=== PATIENT | female | born 1935 | race Caucasian/White ===

== ENCOUNTER 2018-12-18 18:31 | Inpatient (IN) | payer OTHER ==
--- NOTE | 2018-12-18 18:52 | EDPHY ---
H & P Time Seen by Provider: 12/18/18 18:36 HPI/ROS: CHIEF COMPLAINT: Altered mental status, failure to thrive HISTORY OF PRESENT ILLNESS: Patient is an 83-year-old female who presents emergency department via EMS. Per report the patient called her family and asked them to come check on her. Per report, at some point during the last week the patient fell. She is not sure when or how. Patient also reports that sometime during the last week her dog . When I asked the patient if she is aware of what is going on she tells me that she is feeling sad. Patient has no headache. No neck or back pain. No chest pain or shortness of breath. No abdominal pain. She denies nausea vomiting. No pelvic pain. Per the patient's family, her house is usually disheveled. However, they feel the patient is slightly more confused than normal. REVIEW OF SYSTEMS: 10 systems were reveiwed and are negative with the exception of the elements mentioned in the history of present illness. Past Medical/Surgical History: Past medical history: Includes valve replacement Past surgical history: Valve replacement Social history: Patient lives alone Physical Exam: Vitals noted GENERAL: No acute distress, alert. HEAD: No evidence of trauma. Matted hair with dry blood posteriorly. No tenderness to palpation EYES: PERRLA, EOMI, normal to inspection. ENT: Airway intact, no dental or oral injury, no malocclusion, normal external examination. NECK: The trachea is midline. There is no crepitus. The C-spine is nontender. RESPIRATORY: [Clear to auscultation bilaterally, no rales, rhonchi or wheezing. Chest wall: Normal to appearance. No crepitance or deformity. CVS: Regular rate and rhythm, no rubs, murmurs, or gallops. ABDOMEN: Soft, nontender, nondistended, no bruising or abrasions. Pelvis: Stable. No tenderness palpation. Patient has significant bruising over her left posterior pelvis. Mild tenderness palpation GENITAL/RECTAL: Normal external exam. BACK: Bruising of various ages. Normal to inspection, no spinal tenderness, no spinal step off, no notable bruising or abrasions. SKIN: Normal color, warm, dry. No pallor or diaphoresis. EXTREMITIES: Patient moves all her extremities freely. She is neurovascular intact distally in all extremities. The patient does have numerous bruises of different ages all over her extremities. NEURO/PSYCH: Alert and oriented x 2, GCS 14, normal mood and affect, normal motor sensory exam. Constitutional: Initial Vital Signs Temperature (C) 37.1 C 12/18/18 18:51 Heart Rate 128 H 12/18/18 18:51 Respiratory Rate 18 12/18/18 18:51 Blood Pressure 99/71 L 12/18/18 18:51 O2 Sat (%) 94 12/18/18 18:51 O2 Delivery Mode Room Air Allergies/Adverse Reactions: Penicillins Allergy (Verified 12/18/18 18:58) Home Medications: Medication Instructions Recorded Unobtainable 12/18/18 Medical Decision Making ED Course/Re-evaluation: In the emergency department I discussed the case with the family. I also discussed case with the school photograph editor. I answered all her questions. An IV was placed. Laboratory studies and imaging was obtained. I took further history from the patient's family. Per report she has had a valve replaced. She was initially on blood thinners but they are not sure what blood thinner she currently takes. Due the patient's condition, confusion, scattered bruising, and report of blood thinners CT imaging was performed from her head to her pelvis. EKG was obtained. EKG: Sinus tachycardia 124. Prolonged QT. Flipped T-waves in III, V3-V6 Patient's white count is mildly elevated at 10. Hematocrit is normal. INR slightly elevated at 1.19. The patient's chemistry panel shows a slightly low potassium of 3.3. Troponin is negative. 1939: The family initially refuse CT imaging. They were concerned about the patient having [employer] insurance. They want to contact [place] by phone. I discussed that I felt the patient was not stable at this time. She had altered mental status with an elevated heart rate of 126. [place] informed the patient his family that she could have an emergency workup at [facility]. They agreed to CT imaging. Patient was given potassium chloride 60 mEq orally. Rechecked the patient. She had no complaints. She remained tachycardic. Clear breath sounds bilaterally. Abdomen was benign. CT of the head and C-spine: Please refer the dictated report. No acute disease noted. CT of the chest, abdomen and pelvis: Please refer the dictated report by Dr. Rizvi. The patient has posterior 3, 4, 5 rib fractures. CK was 963. I discussed case with MARIA E Mederos. Patient will be admitted to [facility] due to her ongoing tachycardia and stability. I discussed the case with Dr. Winter. The patient is aware that she will be admitted. I discussed the plan with the family. I answered all her questions. I discussed the case with Dr. Thomas from [facility]. He will evaluate the patient for her falls and fractures. Patient's admission order was changed from PCU to ICU due to her mental health hold. Differential Diagnosis: My differential includes but is not limited to subarachnoid hemorrhage, subdural hematoma, epidural hematoma, spinal injury, dysrhythmia, ACS, electrolyte abnormality, sugar abnormality, dehydration, fracture Critical Care Time: Patient required 35 min of critical care time. This was due the patient's presentation, consultation with [place], the hospitalist service, trauma service , discussions with the family, time spent at the bedside - Data Points Laboratory Results: Laboratory Results 12/18/18 18:45 12/18/18 18:45 12/18/18 12/18/18 12/18/18 20:30 19:17 18:45 WBC RBC Hgb Hct MCV MCH MCHC RDW Plt Count MPV Neut % (Auto) Lymph % (Auto) [place] % (Auto) Eos % (Auto) Baso % (Auto) Nucleat RBC Rel Count Absolute Neuts (auto) Absolute Lymphs (auto) Absolute Monos (auto) Absolute Eos (auto) Absolute Basos (auto) Absolute Nucleated RBC Immature Gran % Seg Neutrophils % Band Neutrophils % Lymphocytes % Monocytes % Eosinophils % Basophils % Metamyelocytes % Myelocytes % Promyelocytes % Blast Cells % Immature Gran # Absolute Seg Neuts Absolute Band Neuts Absolute Lymphocytes Absolute Monocytes Absolute Eosinophils Absolute Basophils Absolute Metamyelocyte Absolute Myelocytes Absolute Promyelocytes Absolute Plasma Cells Nucleated RBCs RBC/WBC/PLT Morphology Absolute Blast Cells Plasma Cells % Platelet Estimate PT 14.6 SEC SEC (12.0-15.0) INR 1.19 H (0.83-1.16) APTT 26.9 SEC SEC (23.0-38.0) Sodium Potassium Chloride Carbon Dioxide Anion Gap BUN Creatinine Estimated GFR Glucose Calcium Creatine Kinase CK-MB (CK-2) Fraction CK-MB (CK-2) % Creatine Kinase Interp POC Troponin I 0.04 ng/mL ng/mL (0.00-0.08) TSH Pending Salicylates Acetaminophen Ethyl Alcohol 12/18/18 12/18/18 12/18/18 18:45 18:45 18:31 WBC 10.38 10^3/uL H 10^3/uL (3.80-9.50) RBC 4.90 10^6/uL 10^6/uL (4.18-5.33) Hgb 16.0 g/dL g/dL (12.6-16.3) Hct 47.1 % H % (38.0-47.0) MCV 96.1 fL fL (81.5-99.8) MCH 32.7 pg pg (27.9-34.1) MCHC 34.0 g/dL g/dL (32.4-36.7) RDW 14.1 % % (11.5-15.2) Plt Count 159 10^3/uL 10^3/uL (150-400) MPV 10.2 fL fL (8.7-11.7) Neut % (Auto) Not Reported Lymph % (Auto) Not Reported Fallon % (Auto) Not Reported Eos % (Auto) Not Reported Baso % (Auto) Not Reported Nucleat RBC Rel Count Not Reported Absolute Neuts (auto) Not Reported Absolute Lymphs (auto) Not Reported Absolute Monos (auto) Not Reported Absolute Eos (auto) Not Reported Absolute Basos (auto) Not Reported Absolute Nucleated RBC Not Reported Immature Gran % Not Reported Seg Neutrophils % 86.0 % % Band Neutrophils % 0.0 % % Lymphocytes % 7.0 % % Monocytes % 6.0 % % Eosinophils % 1.0 % % Basophils % 0.0 % % Metamyelocytes % 0.0 % % Myelocytes % 0.0 % % Promyelocytes % 0.0 % % Blast Cells % 0.0 % % Immature Gran # Not Reported Absolute Seg Neuts 8.93 10^3/uL H 10^3/uL (1.70-6.50) Absolute Band Neuts 0.00 10^3/uL 10^3/uL (0.00-0.70) Absolute Lymphocytes 0.73 10^3/uL L 10^3/uL (1.00-3.00) Absolute Monocytes 0.62 10^3/uL 10^3/uL (0.30-0.80) Absolute Eosinophils 0.10 10^3/uL 10^3/uL (0.03-0.40) Absolute Basophils 0.00 10^3/uL L 10^3/uL (0.02-0.10) Absolute Metamyelocyte 0.00 10^3/mL 10^3/mL (0.00-0.00) Absolute Myelocytes 0.00 10^3/mL 10^3/mL (0.00-0.00) Absolute Promyelocytes 0.00 10^3/uL 10^3/uL (0.00-0.00) Absolute Plasma Cells 0.00 10^3/uL 10^3/uL (0.00-0.00) Nucleated RBCs 0 /100 WBC /100 WBC (0-0) RBC/WBC/PLT Morphology NORMAL (NORMAL) Absolute Blast Cells 0.00 10^3/uL 10^3/uL (0.00-0.00) Plasma Cells % 0.0 % % Platelet Estimate ADEQUATE (ADEQ) PT INR APTT Sodium 137 mEq/L mEq/L (135-145) Potassium 3.3 mEq/L L mEq/L (3.5-5.2) Chloride 101 mEq/L mEq/L (97-110) Carbon Dioxide 27 mEq/l mEq/l (22-31) Anion Gap 9 mEq/L mEq/L (6-14) BUN 50 mg/dL H mg/dL (7-23) Creatinine 0.8 mg/dL mg/dL (0.6-1.0) Estimated GFR > 60 Glucose 113 mg/dL H mg/dL (70-100) Calcium 9.4 mg/dL mg/dL (8.5-10.4) Creatine Kinase 963 IU/L H IU/L (0-156) CK-MB (CK-2) Fraction 9.35 ng/mL H ng/mL (0.00-4.55) CK-MB (CK-2) % 1.0 % % (0.0-4.0) Creatine Kinase Interp NEGATIVE (NEGATIVE) POC Troponin I TSH Salicylates < 1.0 mg/dL L mg/dL (2.0-20.0) Acetaminophen < 10 mcg/mL L mcg/mL (10-30) Ethyl Alcohol < 10 mg/dL mg/dL (0-10) Medications Given: Potassium Chloride (Klor-Con) 40 meq PO ONCE ONE Stop: 12/18/18 23:05 Last Admin: 12/18/18 23:10 Dose: 40 meq Discontinued Medications Sodium Chloride (Ns) 1,000 mls @ 0 mls/hr IV ONCE ONE PRN Reason: Wide Open Stop: 12/18/18 19:48 Last Admin: 12/18/18 20:17 Dose: 1,000 mls Sodium Chloride (Ns) 1,000 mls @ 0 mls/hr IV ONCE ONE PRN Reason: Wide Open Stop: 12/18/18 21:20 Last Admin: 12/18/18 21:25 Dose: 1,000 mls Potassium Chloride (Potassium Chloride Oral Liquid) 40 meq PO EDNOW ONE Stop: 12/18/18 22:29 Last Admin: 12/18/18 23:10 Dose: Not Given Point of Care Test Results: Chemistry 12/18/18 19:17 POC Troponin I 0.04 ng/mL ng/mL (0.00-0.08) Departure - Departure Disposition: [facility] Inpatient Acute Clinical Impression: Tachycardia, Hypokalemia Altered mental status Qualifiers: Altered mental status type: unspecified Qualified Code(s): R41.82 - Altered mental status, unspecified Rib fracture Qualifiers: Encounter type: initial encounter Rib fracture type: multiple ribs Fracture type: closed Laterality: left Qualified Code(s): S22.42XA - Multiple fractures of ribs, left side, initial encounter for closed fracture Condition: Fair
[2018-12-18 19:06] LABS: PLATELET COUNT 159 10^3/uL (150-400)
[2018-12-18] MEDS ORDERED: IOPAMIDOL (ISOVUE-300) 100 ML BTL ONE (19:12)
[2018-12-18 19:21] LABS: INR 1.19 (0.83-1.16); PROTIME(PATIENT) 14.6 SEC (12.0-15.0)
[2018-12-18] MEDS ORDERED: NS 1,000 ML IV ONE ×2 (19:47→21:19)
[2018-12-18 21:40] LABS: CREATINE KINASE 963 IU/L (0-156)
[2018-12-18] MEDS ORDERED: ONDANSETRON DISINTEGRATING 4 MG TAB PO PRN (22:23)
[2018-12-18] MEDS ORDERED: HYDROmorphONE/DILAUDID 1 MG/ML INJ IVP PRN (22:23)
[2018-12-18] MEDS ORDERED: ONDANSETRON 4 MG/2 ML VIAL IVP PRN (22:23)
[2018-12-18] MEDS ORDERED: POTASSIUM CL 20 MEQ/15 ML UDCUP PO ONE (22:28)
[2018-12-18] MEDS ORDERED: NS 1,000 ML IV SCH (22:30)
[2018-12-18] MEDS ORDERED: POTASSIUM CL 20 MEQ TAB ONE (22:56)
[2018-12-18] MEDS ORDERED: POTASSIUM CL 20 MEQ TAB PO ONE (23:04)
--- NOTE | 2018-12-18 23:07 | CPEKG ---
Test Reason : OPEN Blood Pressure : / mmHG Vent. Rate : 124 BPM Atrial Rate : 128 BPM P-R Int : 105 ms QRS Dur : 076 ms QT Int : 380 ms P-R-T Axes : 000 073 262 degrees QTc Int : 546 ms Sinus tachycardia Probable left atrial enlargement Abnormal T, consider ischemia, diffuse leads Prolonged QT interval Confirmed by Demetrio Ojeda ([id number]) on 12/18/2018 11:06:56 PM Referred By: DEMETRIO OJEDA Confirmed By:Demetrio Ojeda
[2018-12-19] MEDS ORDERED: HEPARIN 10,000 UNIT/10 ML MDV (1,000 UNIT/ML) IVP PRN (00:36)
[2018-12-19] MEDS ORDERED: HEPARIN 10,000 UNIT/10 ML MDV (1,000 UNIT/ML) IVP ONE (00:36)
--- NOTE | 2018-12-19 00:37 | GCON ---
[f rep st] CONSULTATION REASON FOR CONSULTATION: Multiple rib fractures. HISTORY: The patient is an 83-year-old female who lives alone. Reports her house is usually fairly disheveled but recently has been more so. Apparently she fell 2 or 3 days ago. Was on the floor and could not get to a phone. She has 2 dogs and could not let them out and care for them. One of the dogs has . She has no memory of the event. She keeps thinking she was attacked by an intruder, but there is no evidence of that. According to the family she is slightly more confused than normal. She has multiple contusions. Her CK is 963. She has bruises over her left shoulder, her left back, right thigh, both knees, lower legs as well as other sites. She was found to have fractures of left T1 transverse process and left ribs 3, 4, and 5 posteriorly and 3, 4, 5, and 6 anteriorly but no evidence of a pneumothorax. PAST SOCIAL HISTORY: She smoked approximately 1/2 pack a day for 10 years. She drinks a large glass of vodka daily. MEDICATIONS: Include Pradaxa 150 mg; metoprolol 50 mg twice a day; levothyroxine which she is supposed to take 75 mcg 1.5 tablets daily, but she only takes 1 tablet daily; she takes citalopram 40 mg for depression daily and takes lisinopril 10 mg daily. PAST SURGICAL HISTORY: Includes a right leg embolectomy. At that time, they discovered her to have severe mitral regurgitation and she underwent a valve replacement. She has been on blood thinners (most recently Pradaxa) since that time. The reason she is on lisinopril and metoprolol is to decrease her afterload according to the daughter. She also has had a left humeral head fracture repair. Note is made she did have rheumatic fever as a child, but has not had TB, hepatitis, or transfusions. She has been hypothyroid for 35 years. She does have stress incontinence and occasional issues with uterine prolapse. PHYSICAL EXAMINATION: GENERAL: She is quite hirsute. She is pleasant and pleasantly confused. Interview was carried out to the aid of her daughter. HEENT: Her skull appears to be normocephalic and atraumatic. Her neck is nontender. CT of the head did show atrophy. CT of the neck did not show any acute changes. EXTREMITIES: Right and left upper extremities are unremarkable. CARDIAC: Rapid heart rate of 130. Her saturations are good. Note is made the CT does show a left atrial thrombus. ABDOMEN: Generous, nontender. CT does not show any abnormalities. IMPRESSION: Patient who is aging and somewhat confused who currently lives alone. She appears to have fallen and wilbur on the floor for several days prompting the rhabdomyolysis. Her ribs are not displaced nor is there a pneumothorax or hemothorax. Pulmonary toilet measures will be recommended and ordered. /[id number]/MODL MTDD
--- NOTE | 2018-12-19 01:13 | PDGENHP ---
History and Physical - Chief Complaint Confusion, fall - History of Present Illness Source-patient is awake alert but with poor memory of events over the last several days. Patient's daughter is at bedside and supplements details. EMR was reviewed and case discussed with ED provider and trauma surgeon. HPI - this is a pleasant 83-year-old female with a past medical history significant for depression, HTN, Daily alcohol consult Hem a hypothyroidism, mitral valve replacement chronically on anticoagulation who presents emergency department via EMS after patient called her family reporting that she was unable to get up. Patient does not recall events over last several days. Suspect that patient had a fall at home and was unable to get up for a few days. Patient is quite a bit more confused from her baseline per the daughter which is new. Patient lives independently at home which was reported to be a bit cluttered. She was placed on a M1 hold the due to increasing confusion and agitation on-site. Patient is concerned that somebody broke into her home although there is no reported evidence of a break can or items being taken. At time of my interview in the ED, patient denies any chest pain, palpitations, shortness of breath, fever, chills. She does endorse a runny nose. No nausea, vomiting, diarrhea or abdominal pain. Patient denies any dysuria. She reports she feels quite dehydrated and she has not yet had to void. She does complain of some right great toe pain but otherwise denies any other pain. History Information - Allergies/Home Medication List Allergies/Adverse Reactions: Penicillins Allergy (Verified 12/18/18 18:58) Home Medications: Unobtainable 12/18/18 [Last Taken Unknown] I have personally reviewed and updated: family history, medical history, social history, surgical history - Past Medical History Additional medical history: HTN, depression, chronic anticoagulation for history of prosthetic mitral valve, history of rheumatic fever, DVT in the right lower extremity, hypothyroidism. - Surgical History Additional surgical history: Prosthetic mitral valve replacement, right lower extremity thrombectomy, right shoulder repair with revision. - Family History Additional family history: Negative for DVT. - Social History Smoking Status: Former smoker Tobacco Use: Cigarettes (Ten year history.) Alcohol Use: Heavy (Patient drinks several oz of vodka on a daily basis.) Drug Use: None Additional social history: Patient lives alone in her own home. She has family who live locally and are supportive. Cor status-full. Review of Systems Review of Systems: Ten systems reviewed negative except as noted above. ROS: 10pt was reviewed & negative except for what was stated in HPI & below Physical Exam Physical Exam: Selected Entries 12/18/18 18:51 Blood Pressure Automatic Method Heart Rate 128 H Respiratory 18 Rate O2 Sat (%) 94 Temperature (C) 37.1 C Blood Pressure 99/71 L Mean Arterial 80 Pressure (MAP) O2 Delivery Room Air Mode Temperature Oral Source Temp Pulse Resp BP Pulse Ox 37.2 C 130 H 20 112/79 92 12/19/18 01:04 12/19/18 01:04 12/19/18 01:04 12/19/18 01:04 12/19/18 01:04 Constitutional: no apparent distress, appears nourished, not in pain, chronically ill appearing, other (NAD. Pleasant elderly frail-appearing female is lying comfortably in bed. Daughter at bedside.) Eyes: PERRL (Slightly decreased reactivity light bilaterally but symmetric.), anicteric sclera, EOMI, No scleral injection Ears, Nose, Mouth, Throat: poor dentition (Dentition in fair condition.), dry mucous membranes, other (No nasal discharge.) Cardiovascular: regular rate and rhythym, JVD, pulses symmetric bilaterally, tachycardia, edema (Trace bilateral lower extremity edema) Peripheral Pulses: 1+: dorsalis-pedis (R), dorsalis-pedis (L) Respiratory: no respiratory distress, no rales or rhonchi, clear to auscultation , No inspiratory crackles, No respiratory distress Gastrointestinal: soft, non-tender abdomen, other (Hypoactive bowel sounds. Soft but full.), No distension Genitourinary: no bladder tenderness, No mason in urethra Skin: warm, normal color, other (Patient with contusions to her right hip and lower extremities.) Musculoskeletal: generalized weakness, other (Patient is not able to sit up independently. She does require a little bit of assistance rolling to her side. She is able to move all extremities while lying in bed. Strength overall 4 5 in upper lower extremities bilaterally.) Neurologic: sensation intact bilaterally, CN II-XII Intact, other (Patient overall with quite poor memory. She forgets items of discussion within several minutes during interview.), No AAOx3, No facial droop Psychiatric: interacting appropriately, thought process linear, encephalopathic , poor insight, poor judgement, poor memory, No anxious, No depressed, No suicidal ideation, No agitated Lab Data & Imaging Review 12/18/18 18:45 12/18/18 18:45 WBC 10.38 10^3/uL (3.80-9.50) H 12/18/18 18:45 RBC 4.90 10^6/uL (4.18-5.33) 12/18/18 18:45 Hgb 16.0 g/dL (12.6-16.3) 12/18/18 18:45 Hct 47.1 % (38.0-47.0) H 12/18/18 18:45 MCV 96.1 fL (81.5-99.8) 12/18/18 18:45 MCH 32.7 pg (27.9-34.1) 12/18/18 18:45 MCHC 34.0 g/dL (32.4-36.7) 12/18/18 18:45 RDW 14.1 % (11.5-15.2) 12/18/18 18:45 Plt Count 159 10^3/uL (150-400) 12/18/18 18:45 MPV 10.2 fL (8.7-11.7) 12/18/18 18:45 Neut % (Auto) Not Reported 12/18/18 18:45 Lymph % (Auto) Not Reported 12/18/18 18:45 King % (Auto) Not Reported 12/18/18 18:45 Eos % (Auto) Not Reported 12/18/18 18:45 Baso % (Auto) Not Reported 12/18/18 18:45 Nucleat RBC Rel Count Not Reported 12/18/18 18:45 Absolute Neuts (auto) Not Reported 12/18/18 18:45 Absolute Lymphs (auto) Not Reported 12/18/18 18:45 Absolute Monos (auto) Not Reported 12/18/18 18:45 Absolute Eos (auto) Not Reported 12/18/18 18:45 Absolute Basos (auto) Not Reported 12/18/18 18:45 Absolute Nucleated RBC Not Reported 12/18/18 18:45 Immature Gran % Not Reported 12/18/18 18:45 Seg Neutrophils % 86.0 % 12/18/18 18:45 Band Neutrophils % 0.0 % 12/18/18 18:45 Lymphocytes % 7.0 % 12/18/18 18:45 Monocytes % 6.0 % 12/18/18 18:45 Eosinophils % 1.0 % 12/18/18 18:45 Basophils % 0.0 % 12/18/18 18:45 Metamyelocytes % 0.0 % 12/18/18 18:45 Myelocytes % 0.0 % 12/18/18 18:45 Promyelocytes % 0.0 % 12/18/18 18:45 Blast Cells % 0.0 % 12/18/18 18:45 Immature Gran # Not Reported 12/18/18 18:45 Absolute Seg Neuts 8.93 10^3/uL (1.70-6.50) H 12/18/18 18:45 Absolute Band Neuts 0.00 10^3/uL (0.00-0.70) 12/18/18 18:45 Absolute Lymphocytes 0.73 10^3/uL (1.00-3.00) L 12/18/18 18:45 Absolute Monocytes 0.62 10^3/uL (0.30-0.80) 12/18/18 18:45 Absolute Eosinophils 0.10 10^3/uL (0.03-0.40) 12/18/18 18:45 Absolute Basophils 0.00 10^3/uL (0.02-0.10) L 12/18/18 18:45 Absolute Metamyelocyte 0.00 10^3/mL (0.00-0.00) 12/18/18 18:45 Absolute Myelocytes 0.00 10^3/mL (0.00-0.00) 12/18/18 18:45 Absolute Promyelocytes 0.00 10^3/uL (0.00-0.00) 12/18/18 18:45 Absolute Plasma Cells 0.00 10^3/uL (0.00-0.00) 12/18/18 18:45 Nucleated RBCs 0 /100 WBC (0-0) 12/18/18 18:45 RBC/WBC/PLT Morphology NORMAL (NORMAL) 12/18/18 18:45 Absolute Blast Cells 0.00 10^3/uL (0.00-0.00) 12/18/18 18:45 Plasma Cells % 0.0 % 12/18/18 18:45 Platelet Estimate ADEQUATE (ADEQ) 12/18/18 18:45 PT 14.6 SEC (12.0-15.0) 12/18/18 18:45 INR 1.19 (0.83-1.16) H 12/18/18 18:45 APTT 26.9 SEC (23.0-38.0) 12/18/18 18:45 Sodium 137 mEq/L (135-145) 12/18/18 18:45 Potassium 3.3 mEq/L (3.5-5.2) L 12/18/18 18:45 Chloride 101 mEq/L (97-110) 12/18/18 18:45 Carbon Dioxide 27 mEq/l (22-31) 12/18/18 18:45 Anion Gap 9 mEq/L (6-14) 12/18/18 18:45 BUN 50 mg/dL (7-23) H 12/18/18 18:45 Creatinine 0.8 mg/dL (0.6-1.0) 12/18/18 18:45 Estimated GFR > 60 12/18/18 18:45 Glucose 113 mg/dL (70-100) H 12/18/18 18:45 Calcium 9.4 mg/dL (8.5-10.4) 12/18/18 18:45 Creatine Kinase 963 IU/L (0-156) H 12/18/18 18:31 CK-MB (CK-2) Fraction 9.35 ng/mL (0.00-4.55) H 12/18/18 18:31 CK-MB (CK-2) % 1.0 % (0.0-4.0) 12/18/18 18:31 Creatine Kinase Interp NEGATIVE (NEGATIVE) 12/18/18 18:31 POC Troponin I 0.04 ng/mL (0.00-0.08) 12/18/18 19:17 TSH 39.400 uIU/mL (0.465-4.680) H 12/18/18 20:30 Free T4 0.63 ng/dL (0.59-2.19) 12/18/18 20:30 Free T3 1.67 pg/mL (2.77-5.27) L 12/18/18 20:30 Salicylates < 1.0 mg/dL (2.0-20.0) L 12/18/18 18:45 Acetaminophen < 10 mcg/mL (10-30) L 12/18/18 18:45 Ethyl Alcohol < 10 mg/dL (0-10) 12/18/18 18:45 Imaging Review: CT Cervical Spine Indication: Found down. Bruising. On blood thinners. Comparison: None Technique: 1.25 mm thick axial collimated slices were obtained from the occiput through superior endplate of T2. The data was reconstructed in the sagittal and coronal plane. Both soft tissue and bone windows were reviewed. Dose reduction techniques were utilized. Findings: No acute cervical spine fracture. An acute nondisplaced transverse fracture courses through the left T1 transverse process on image 90 of series 4. A nondisplaced fracture courses through the posterior left 3rd rib on image 106 of series 4. C6 is retrolisthesis 3 mm on C7 due to degenerative cysts disk and facet arthropathy. Severe degenerative disk disease present C3-C4, C4-C5, C5-C6 and C6-C7. Prevertebral soft tissues are within normal limit. Impression: 1. No acute cervical spine fracture. 2. Acute nondisplaced left T1 transverse process fracture. 3. Acute posterior left 3rd rib fracture. 4. If the patient has persistent pain or neurologic deficits, consider cervical spine MRI. Findings discussed with Emergency Department physician, DEMETRIO RODARTE at 20:35. Dictated By: Oseas Rizvi MD CT Head (Without Contrast) 7:57 PM Indication: Found down. Bruises. On blood thinners. Technique: Standard noncontrast head CT protocol utilizing 5 mm thick collimated slices and field of view of 23 cm. Dose reduction techniques were utilized. Multiplanar reconstructions including 3- D reconstructions performed and evaluated on [employer] workstation to better evaluate for skull fracture. Comparison: None Findings: Small high left parietal scalp hematoma. No underlying acute skull fracture. No intracranial hemorrhage, mass lesion, swelling, or subdural hematoma. Mild atrophy is evidenced by enlargement of the cerebral sulci and sylvian fissures. The ventricles are normal caliber and midline. The avina and white matter has normal attenuation. Moderate periventricular low-attenuation white matter disease present in the frontal and parietal lobes. Paranasal sinuses are clear. No acute facial fracture. Impression: 1. No acute fracture or evidence of acute intracranial injury. 2. Small left parietal scalp hematoma. 3. Atrophy and white matter disease. Findings discussed with Emergency Department physician, DEMETRIO RODARTE at 20:35. Dictated By: Oseas Rizvi MD CT Chest With Contrast Indication: Found down. Comparison: None Technique: 5 mm thick collimated slices were obtained through the chest following uneventful administration of 85 mL Isovue 300. Sagittal multiplanar reconstructions were performed of the thoracic spine. Dose reduction techniques were utilized. Findings: Acute minimally displaced posterior left third fourth and fifth rib fractures have no periosteal reaction. Acute buckle fractures involve the anterior left third fourth fifth and sixth ribs. No associated callus formation. Acute nondisplaced fracture involves the left first transverse process. No thoracic spine compression fracture. Mild multilevel degenerative disk disease. The lungs are well aerated and clear with minimal bibasilar atelectasis. No pneumothorax or effusion. A low-attenuation lobular filling defect in the left atrium, adjacent the prosthetic mitral valve, measures 3 x 1.5 x 1.5 cm. The interventricular septum and left ventricular wall are thickened measuring up to 1.5 cm. The thoracic aorta is normal caliber mildly tortuous with calcified plaque. No pericardial effusion. Extensive three-vessel calcified coronary plaque. No enlarged lymph node or mass throughout the axilla, mediastinum, or pulmonary tonya. Impression: 1. Acute left 3rd, 4th, 5th, and 6th rib fractures. 2. Nondisplaced acute left T1 transverse process fracture. 3. No acute thoracic spine compression fracture. 4. No pneumothorax or effusion. 5. No acute aortic injury. 6. Filling defect, likely thrombus, in the left atrium adherent to the prosthetic mitral valve. Findings discussed with Emergency Department physician, DEMETRIO RODARTE at 20:55. Dictated By: Oseas Rizvi MD CT Scan of the Abdomen and Pelvis (With Contrast) Indication: Found down. Bruising. Technique: No oral or rectal contrast. A 5 mL of Omnipaque 300 were given intravenously by machine power injection. Multidetector helical CT imaging was performed from the diaphragm to the symphysis pubis. Dose reduction techniques were utilized. Comparison: None Findings: No pneumoperitoneum, free fluid, mesenteric edema, lymphadenopathy or mass. The liver, spleen, pancreas, gallbladder, adrenal glands, and kidneys are normal. No solid organ laceration or contusion. No biliary dilation. The portal venous system is patent. Bowel pattern normal. No obstruction or adynamic ileus. The abdominal aorta is normal caliber mild calcified plaque. The pelvic floor is low with features suggestive of rectal prolapse. Urinary bladder is normal. No adnexal mass. No acute lumbar spine or pelvic fracture. Severe multilevel degenerative disk and facet arthropathy extends from L1-L2 to L5-S1. Impression: 1. No evidence of solid organ or bowel injury. 2. No acute lumbar spine or pelvic fracture. 3. No localized intra-abdominal inflammatory process. Findings discussed with Emergency Department physician, DEMETRIO RODARTE at 20:52. Dictated By: Oseas Rizvi MD Assessment & Plan Assessment: This is a pleasant 83-year-old female with a past medical history significant for depression, HTN, Daily alcohol consult Hem a hypothyroidism, mitral valve replacement chronically on anticoagulation who presents emergency department via EMS after patient called her family reporting that she was unable to get up. #Altered mental status (Acute)- Ddx - suspect potential metabolic encephalopathy in setting of rhabdomyolysis vs ETOH withdrawal VS. acute embolic CVA in setting of a large atrial thrombus VS less likely infectious etiology however patient has yet to void denies any previous history of UTIs. Patient neurologic exam is grossly nonfocal. She is able to move all extremities. She does have acute change in mental status. CT head negative for any acute findings. Consider MRI in a.m. for persistent symptoms. For now anticoagulation and gentle IV fluid hydration. UA pending. TSH elevated with low T3 however patient has been without her levothyroxine for several days and this will be replaced. #Left atrial thrombus - unclear if thrombus developed prior to or following patient's fall. Patient notes that she has only been taking her Pradaxa once daily. It is quite possible that she developed thrombus potential on skin she has scattered emboli/CVA and had a syncopal episode resulting in her fall. Discussed with Dr. Johnson with CT Surgery who will see the patient in the morning. Agrees with a heparin drip. Risks benefits of anticoagulation discussed with the patient and her family and they agree to proceed with heparin gtt. Echocardiogram in the morning. #Rhabdomyolysis - will trend CK. Gentle IV fluid hydration as noted above. She does appear dry. #Rib fracture (Acute) - trauma surgery consulted from the ED given the numerous fractures. Dr. Thomas recommends incentive spirometry. #Tachycardia (Acute) - secondary to atrial thrombus vs alcohol withdrawal although patient without any additional sequelae. #Hypokalemia (Acute) - replacement given in the ED. Will monitor electrolytes. # generalized weakness/deconditioning - PT OT once patient is off of the heparin drip and plan established for managing her thrombus. Chronic medical issues #Benign essential HTN - blood pressures at this time are acceptable. Resume patient's metoprolol and lisinopril his renal function is still appropriate. #Hypothyroidism - patient with elevated TSH and slightly diminished T3. She has not had her home medications in several days. Will plan to resume her home dosing 100 mcg daily. #Depression - patient with QT prolongation. Hold off on her citalopram. #Daily alcohol consumption - patient's last drink approximately 2 days ago. Monitor for any signs of withdrawal. FEN - gentle IV fluid hydration patient does appear to be dry. Given that she has a large on atrial thrombus will monitor fluid status closely. Electrolyte replacement given in the ED will monitor her electrolytes closely. NPO status pending CT surgery consultation. PPX-heparin drip. Cor status-full at this time. Patient and her family will further discuss advanced directives. Disposition-patient admitted inpatient status to ICU. Anticipate greater than 2 midnight stay.
[2018-12-19] MEDS: HEPARIN/DEXTROSE 500 ML IV SCH ×2 (01:53→21:29)
[2018-12-19] MEDS: LEVOTHYROXINE 100 MCG TAB PO SCH (05:52)
[2018-12-19 05:56] LABS: PLATELET COUNT 129 10^3/uL (150-400)
[2018-12-19 06:03] LABS: INR 1.46 (0.83-1.16); PROTIME(PATIENT) 17.1 SEC (12.0-15.0)
[2018-12-19 06:37] LABS: CREATINE KINASE 670 IU/L (0-156)
--- NOTE | 2018-12-19 06:43 | PDMN ---
Medical Necessity Medical necessity: Pt meets inpt criteria per MD order and MCG 545, Rib Fracture , 83 y/o who likely sustained fall and was unable to get up for ext period of time presented w/AMS, likely metabolic encephalopathy; consider acute embolic CVA, rib fractures L 3rd-6th, rhabdomyolysis, tachycardia, and large L atrial thrombus for which she will have CT surg consult today. Pt put on M1 hold due to confusions and increasing agitation, ICU, Heparin gtt, IVF, possible brain MRI today if symptoms persist. Other PMH includes depression, HTN, MVR w/ chronic anticoag. Ext stay anticipated in pt w/mult rib fx's and other active comorbidities as listed above.
[2018-12-19] MEDS ORDERED: DIAZEPAM 5 MG/ML 1 ML SYR IVP ONE (09:37)
--- NOTE | 2018-12-19 09:48 | PDCONSULT ---
Project Structural Engineer Note: ASSESSMENT 83-year-old female with bioprosthetic MVR, etoh dependence admitted with mechanical fall resulting in L sided rib fractures, etoh w/d and mitral valve thrombus # etoh w/d # Wernicke's encephalopathy # mitral valve thrombus in the setting of anticoagulation non adherence # left-sided rib fractures. Due to mechanical fall, no ptx # T1 transverse process fracture, nondisplaced. # HTN # atrial fibrillation # Hypothyroidism. TSH 39 on admission. Presentation not consistent with mixed edema coma # hypokalemia and hypomagnesemia. due to etoh and poor solute intake PLAN # heparin gtt # JOSEPHINE to eval thrombus # CTS consulted # ativan as needed, will start CIWA # add high dose thiamine for wernike's # restart Synthroid # check blood cultures given MV thrombus # Feeding - NPO # Analgesia APAP, # Sedation none # Thromboprophylaxis - hep gtt # Head of bed elevated # Ulcer prophylaxis - H2 katerine # Glucose SSI # Skin no skin breakdown # Delirium - delirium precautions ABX none EVENTS 12/18 ICU admission RELEVANT LABS UA negative, no leukocytosis, CX Data 12/19/18 BCx pending IMAGING I personally reviewed interpreted radiographic images with formal radiology reads. 12/18/2018 CT chest with contrast-acute left 3rd 4th 5th and 6th rib fractures, nondisplaced left T1 transverse process fracture, no pneumothorax, lobular filling defect adherent to the prosthetic mitral valve suspect thrombus. CONSULT: I was asked by Dr. Emma Winter of [facility] to evaluate this patient for ICU care CC fall MAGALI Lam is a very pleasant 83-year-old female who was found down by family after suffering from mechanical fall. She was down between 1 and 3 days. Patient lives alone in drinks copious amounts of alcohol approximately 10-15 oz minimal grade use per day in the form of martinis. She has multiple medical problems including a prior bioprosthetic mitral valve repair as well as right lower extremity DVT and was on chronic oral anticoagulation with Pradaxa however admits to not taking her anticoagulation in quite some time. Emergency department she was evaluated and given IV fluids and underwent imaging which discovered multiple rib fractures well as a lobular filling defect adherence to her prosthetic valve concerning for thrombus. She started heparin drip and transferred to the ICU for closer monitoring. At today and have exam she is accompanied by family members who denies any new focal deficits. She does say she is tremulous and would like a drink of alcohol. She denies fevers, chills, nausea vomiting neck, leg swelling or chest pain. ALLERGIES PCN MED HX Bioprosthetic mitral valve repair, atrial fibrillation, hypertension, hypothyroidism,right lower leg arterial thrombus requiring thrombectomy FAM HX no h/o rib fractures SOC HX lives alone, drinks 3+ double martini's per night ROS A comprehensive 10 point review of systems was obtained is negative except as per HPI EXAM VITALS heart rate 135 presume sinus, blood pressure 118/76, respiratory rate 22 95% on room air GEN: Discharge hold, tremulous NEURO: A&Ox2, CN 2-12 GI, significant ataxia and unable to stand on her own HEENT: PERRL, EOMI, MMM, OP clear NECK: supple, trachea midline CHEST normal shape, no pes excavatum CVS: rrr no m/r/g PULM: CTA B, no wheezes/rales/rhonchi ABD: soft, NT, ND, NABS EXT: no swelling, no cyanosis, full ROM SKIN: warm, dry, intact, no rash PSYCH CAM negative, appropriate affect
[2018-12-19] MEDS ORDERED: LEVOTHYROXINE 75 MCG TAB PO SCH (10:00)
[2018-12-19] MEDS: LISINOPRIL 10 MG TAB PO SCH (10:15)
[2018-12-19] MEDS: METOPROLOL TARTRATE 50 MG TAB PO SCH ×2 (10:16→21:27)
--- NOTE | 2018-12-19 10:19 | HOSPPROG ---
Hospitalist Progress Note Assessment/Plan: MV thrombus - echo pending. CV surgery has been consulted. Note h/o rheumatic heart disease. -cont heparin drip -blood culture pending -await CV surgery recs sinus tachycardia - likely 2/2 above a fib - new this am, rate controlled -check ekg, TSH high as below, echo pending -on heparin rib fractures - pain control alcohol abuse - CIWA, thiamine wernicke's dose hypertension - cont lisinopril, metoprolol hypothyroidism - had been taking 75 mcg daily -increase to 100 mcg daily, recheck tsh in 4-6 weeks dementia - cog eval Full code Dispo - cont inpt, ICU, high risk, 30 min crit care Subjective: Pt doing ok. She is up in chair talking on the phone. No CP or SOB. No complaints. Objective: Vital Signs Temp Pulse Resp BP Pulse Ox 37.1 C 128 H 27 H 160/103 H 92 12/19/18 01:26 12/19/18 06:00 12/19/18 06:00 12/19/18 06:00 12/19/18 06:00 Laboratory Results 12/19/18 05:30 12/19/18 05:30 12/18/18 12/19/18 12/20/18 05:59 05:59 05:59 Intake Total 2631 Output Total 600 Balance 2031 PT 17.1 SEC (12.0-15.0) H 12/19/18 05:30 INR 1.46 (0.83-1.16) H 12/19/18 05:30 - Physical Exam Constitutional: no apparent distress Eyes: PERRL Ears, Nose, Mouth, Throat: moist mucous membranes Cardiovascular: regular rate and rhythym Respiratory: no respiratory distress, clear to auscultation Gastrointestinal: normoactive bowel sounds, soft, non-tender abdomen Skin: warm Musculoskeletal: full muscle strength Psychiatric: poor insight, poor judgement, poor memory ICD10 Worksheet Patient Problems: Problems Problem Status Onset Altered mental status Acute Hypokalemia Acute Rib fracture Acute Tachycardia Acute
--- NOTE | 2018-12-19 10:22 | TRAUMAPNT ---
Trauma Tertiary Progress Note New Findings: no new findings. note TSH 39, Has been non compliant with synthroid Assessment/Plan: PAD#1 12/19/2018 Assessment: Chest - Lung up by cxr, No complaints of pain, will need to work with IS, No E to A changes. - Tolerating rib fractures well. Patient reported that she has has not been taking the correct dose of synthroid (2/3) for quite some time. Left atrial thrombus - awaiting Dr. Johnson's input. No signs of thrombus embolization yet. Plan: F/u CXR in AM work on IS Watch for signs of embolization. Subjective: No complaints, Not hungry Objective: Vital Signs Temp Pulse Resp BP Pulse Ox 37.0 C 93 22 H 133/92 H 93 12/19/18 08:00 12/19/18 08:00 12/19/18 08:00 12/19/18 08:00 12/19/18 08:00 Laboratory Results 12/19/18 05:30 12/19/18 05:30 12/18/18 12/19/18 12/20/18 05:59 05:59 05:59 Intake Total 2631 Output Total 600 Balance 2031 PT 17.1 SEC (12.0-15.0) H 12/19/18 05:30 INR 1.46 (0.83-1.16) H 12/19/18 05:30 - C-Spine Clearance Cervical Spine Cleared: Yes Provider who Cleared Cervical Spine: Martha by CT Physical Exam - Physical Exam General Appearance: WD/WN, alert, no apparent distress Respiratory: lungs clear, normal breath sounds (no E to A changes) Cardiac/Chest: irregularly irregular Abdomen: normal bowel sounds, non-tender, soft Pelvic Exam: deferred Rectal: deferred Back: Normal inspection Skin: normal color, warm/dry Neuro/Psych: no motor/sensory deficits, alert, normal mood/affect (25) Time Spent w/Patient (minutes): 25
[2018-12-19] MEDS ORDERED: LORazepam 2 MG/ML INJ IVP PRN (10:30)
[2018-12-19] MEDS ORDERED: FLUMAZENIL 0.5 MG/5 ML MDV IVP PRN (10:30)
[2018-12-19] MEDS ORDERED: LORazepam 1 MG TAB PO PRN (10:30)
[2018-12-19] MEDS: MAGNESIUM OXIDE 400 MG TAB PO SCH ×2 (10:50→21:27)
--- NOTE | 2018-12-19 13:19 | GCON ---
[f rep st] CONSULTATION DATE OF CONSULTATION: 12/19/2018 REFERRING PHYSICIAN: Hospitalist Service The patient is seen at the request of the Hospitalist Service with the patient's permission. IMPRESSION: 1. Left atrial thrombus of uncertain etiology. 2. History of likely atrial arrhythmias on Pradaxa currently, was previously on Coumadin and did not like all the lab testing. Compliance with medications is questionable. 3. Dementia. 4. Alcoholism. 5. 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 RECOMMENDATIONS: This patient should have JOSEPHINE to better define the thrombus. On surface echo, it ap pears to be adherent to the atrial septum above the mitral valve prosthesis and not impairing flow. She does not appear to be in atrial flutter. I see no indication for surgical intervention if the va lve was functioning. I advised the family that there is some risk of recurrent embolization; however , given her dementia, age, alcoholism, and comorbidities, I would not offer her surgery and that the only option would be to increase her anticoagulants in the hopes of stabilizing and resolving this th rombus. She should also have blood cultures to rule out endocarditis, although this is not a typical presentation. . CHIEF COMPLAINT: An 83-year-old female found down at home, was brought in. Reason for falling was u ncertain. I was asked to see her because CT scan showed thrombus in the left atrium, echo confirms t hat as previously stated. Medical history is reviewed. Most history obtained from the daughter. REVIEW OF SYSTEMS: Were not productive. GENERAL: GENERAL: At the present time, she is alert, cooperative, somewhat confused, and smiling. VITAL SIGNS: Blood pressure 105/61, heart rate 69 irregular, O2 saturation 91%. HEART: Rate is irr egular with a murmur across the precordium. LUNGS: Diminished. ABDOMEN: Protuberant, nontender. Bowel sounds are active. EXTREMITIES: Pedal pulses are faint at 1+ and symmetrical. DATA: CT scan was reviewed, as was the echo. All studies were reviewed. /[id number]/MODL
--- NOTE | 2018-12-19 13:27 | ECHO ---
[email or web address] [address] [address] Main: [phone] Echocardiography Examination Transthoracic Name: RIC JUDGE MR#: [id number] Study Date: 12/19/2018 Study Time: 08:08 AM Date of : 1935 Age: 83 year(s) Height: 157.5 cm (62 in.) Weight: 68.04 kg (150 lb.) BSA: 1.69 m2 Gender: Female Examination: Echo Contrast: Image Quality: Technically Difficult Rhythm: Tachycardia Heart Rate: 130 bpm BP: 133 mmHg/92 mmHg Indication: Tachycardia, abnormal CT chest possible atrial thrombus Procedure Staff Referring Physician: Plant Attendant Or Assistant Operator: Morenita Navarro RDCS Reading Physician: Pierce Castro MD Requesting Provider: Indication: Tachycardia, abnormal CT chest possible atrial thrombus Measurements Chambers AV/MV Label Value Normal Value Label Value Normal Value EF upper range (%) 63 % AV PGmax 10 mmHg IVSd, 2D 1 cm (0.6cm - 1.1cm) AV Vmax 1.55 m/s LVDd, 2D 3.5 cm (3.9cm - 5.3cm) HA (continuity eq. 1.4 cm2 LVDs, 2D 2.7 cm (2.1cm - 4cm) Vmax) LVEF, 2D 47 % (54% - 74%) MV PGmax 11 mmHg LVEF, MOD2 76 % (55% - 70%) MV PGmean 5 mmHg LVEF, MOD4 73 % (55% - 70%) MV VTI 25.6 cm LVOT PGmax 2 mmHg TV/PV LVOT Vmax 0.75 m/s (0.7m/s - 1.1m/s) Label Value Normal Value LVOTd 1.9 cm (1.8cm - 2cm) RA Pressure 5 mmHg LVPWd, 2D 0.9 cm RVSP 34 mmHg RVDd, 2D 2.9 cm (1.9cm - 3.8cm) TR Pmax 29 mmHg LA Volume, A4C 64 ml (22ml - 52ml) TR Vmax 2.7 m/s LAESV index, MOD4 37.9 ml/m2 PV PGmax 4 mmHg RA Area 19.4 cm2 PV Vmax, Caliper 1.02 m/s (0.6m/s - 0.9m/s) Additional Vessels Label Value Normal Value AoAsc 3 cm AoRoot, 2D 3.3 cm (1.4cm - 2.6cm) Patient: RIC JUDGE Study Date: 12/19/2018 Page 1 of 3 08:08 AM Conclusions Left Ventricle: CONCLUSIONS:1)Normal LV size and systolic function with a LVEF of 63% and normal wall motions.2)Mild bi-atrial enlargement noted.3)Possible clot/thrombus on ventricular side of BIOMVR or along medial LA border.4)Aortic valve sclerosis without or AI noted.5)Bioprosthetic MVR with normal gradients and no MR.'6)Moderate TR with estimated normal PA pressures.note: consider JOSEPHINE to better evaluate for any LA thrombus or thrombus on BIOMVR. Findings Left Ventricle: CONCLUSIONS: 1)Normal LV size and systolic function with a LVEF of 63% and normal wall motions. 2)Mild bi-atrial enlargement noted. 3)Possible clot/thrombus on ventricular side of BIOMVR or along medial LA border. 4)Aortic valve sclerosis without or AI noted. 5)Bioprosthetic MVR with normal gradients and no MR.' 6)Moderate TR with estimated normal PA pressures. note: consider JOSEPHINE to better evaluate for any LA thrombus or thrombus on BIOMVR.Normal global systolic left ventricular function. EF evaluated by EF (biplane Roblero's). Left ventricle wall thickness is normal. There are no regional wall motion abnormalities. Unable to assess Diastolic Dysfunction due to mitral valve or annular interference. Right Ventricle: Normal size right ventricle. Right ventricular systolic function is normal. Left Atrium: The left atrium is mildly dilated. This study is inadequate to exclude a mass in the left atrium due to shadowing from MVR. Right Atrium: The right atrium is mildly dilated. Mitral Valve: There is a mitral valve prosthesis, size and type unknown.. Prosthetic mitral valve gradients are within normal limits. Mitral Valve Measurements MV PGmean is 5 mmHg. Aortic Valve: The aortic valve is structurally normal and trileaflet. No aortic valve regurgitation. There is no aortic stenosis. Aortic leaflets exhibit mild calcification. There is aortic sclerosis present. Tricuspid Valve: Tricuspid valve leaflets are structurally normal. Moderate tricuspid regurgitation. Right Ventricular systolic pressure is measured at 34 mmHg. Pulmonary artery pressure slightly increased. Aorta: The aortic root size in 2D measures 3.3 cm. The aortic root exhibits normal size. The ascending aorta measures 3.0 cm. Ascending aorta is normal in size. Aorta Measurements AoRoot, 2D is 3.3 cm. IVC: The inferior vena cava is not well visualized. Pericardium: No pericardial effusion. Exam Details Procedure Ordered: Echo Procedure Status: Routine study Patient: RIC JUDGE Study Date: 12/19/2018 Page 2 of 3 08:08 AM Image Quality: Technically Difficult Facility Location: Cardiac Echo 1 (No Signature Object) Patient: RIC JUDGE Study Date: 12/19/2018 Page 3 of 3 08:08 AM [id number]
--- NOTE | 2018-12-19 13:41 | ASMTCMCOM ---
CM Note CM Note Notes: Pt is a 83 yo F who was found down. Pt has adult children in the area. Pt reportedly drinks 10-15 oz of ETOH daily. Pt was living independently prior to admission. At this time PT is recommending SNF. CM to discuss options with pt and family and submit referrals; CM to assess ETOH use and assess as indicated. CM to follow. Plan: SNF Date Signed: 12/19/2018 01:39 PM Electronically Signed By:CATALINA Cifuentes
--- NOTE | 2018-12-19 14:02 | CPEKG ---
Test Reason : OPEN Blood Pressure : / mmHG Vent. Rate : 064 BPM Atrial Rate : 064 BPM P-R Int : 332 ms QRS Dur : 073 ms QT Int : 589 ms P-R-T Axes : 269 034 116 degrees QTc Int : 608 ms Atrial flutter with predominant 4:1 AV block Repol abnrm suggests ischemia, diffuse leads ST depression V1-V3, suggest recording posterior leads Prior ECG appears to be atrial flutter with 2:1 block (not sinus rhythm) Confirmed by Miguel Fuentes ([id number]) on 12/19/2018 2:01:31 PM Referred By: Emma Winter Confirmed By:Miguel Fuentes
--- NOTE | 2018-12-19 14:08 | PDHPUP ---
History & Physical Update H&P update statement: This history and physical update is based on an assessment of the patient which was completed after admission or registration (within 24 hours), but prior to the surgery/procedure. H&P update: H&P reviewed & patient examined, no change in patient's condition since H&P completed
[2018-12-19] MEDS ORDERED: PROPOFOL 200 MG/20 ML VIAL ONE (14:09)
[2018-12-19] MEDS ORDERED: LIDOCAINE 2% 2 ML INJ ONE (14:10)
--- NOTE | 2018-12-19 14:22 | PDANEPAE ---
ANE History of Present Illness fredi ANE Past Medical History - Cardiovascular History Hx Hypertension: Yes Hx Arrhythmias: No Hx Chest Pain: No Hx Coronary Artery / Peripheral Vascular Disease: No Hx CHF / Valvular Disease: Yes Hx Palpitations: No - Pulmonary History Hx COPD: No Hx Asthma/Reactive Airway Disease: No Hx Recent Upper Respiratory Infection: No Hx Oxygen in Use at Home: No Hx Sleep Apnea: No Pulmonary History Comment: rib fracture from recent fall - Neurologic History Hx Cerebrovascular Accident: No Hx Seizures: No Hx Dementia: Yes - Endocrine History Hx Diabetes: No Hypothyroid: No Hyperthyroid: No Obesity: mild - Renal History Hx Renal Disorders: No ANE Review of Systems Review of Systems: ANE Patient History - Allergies Allergies/Adverse Reactions: Penicillins Allergy (Verified 12/18/18 18:58) - Home Medications Home Medications: Citalopram Hydrobromide [Celexa] 40 mg PO DAILY 12/19/18 [Last Taken Unknown] Dabigatran Etexilate Mesyl [Pradaxa 150 MG (*)] 150 mg PO BID 12/19/18 [Last Taken Unknown] Levothyroxine [Synthroid 75 mcg (*)] 75 mcg PO DAILY06 12/19/18 [Last Taken Unknown] Lisinopril [Zestril 10 mg (*)] 10 mg PO DAILY 12/19/18 [Last Taken Unknown] Metoprolol Tartrate [Lopressor 50 mg (*)] 50 mg PO BID 12/19/18 [Last Taken Unknown] - Smoking Hx Smoking Status: Former smoker - Alcohol Use Alcohol Use: Heavy (Patient drinks several oz of vodka on a daily basis.) ANE Labs/Vital Signs - Labs Result Diagrams: 12/19/18 05:30 12/19/18 05:30 - Vital Signs Blood Pressure: 111/60 Heart Rate: 62 Respiratory Rate: 19 O2 Sat (%): 94 Height: 157.48 cm Weight: 68.2 kg
--- NOTE | 2018-12-19 15:31 | POSTANESTH ---
Post Anesthetic Evaluation Cardiovascular Status: Normal, Stable Respiratory Status: Normal, Stable Level of Consciousness/Mental Status: Can Participate in Eval Pain Control: Adequate, Prn Tx Ordered Nausea/Vomiting Control: Adequate, Prn Tx Ordered Complications Possibly Related to Anesthesia: None Noted
[2018-12-19] MEDS ORDERED: NS W/ 20 KCl/L 1,000 ML IV SCH (15:45)
[2018-12-19] MEDS: THIAMINE HCL 500 MG in NS 100 ML IV SCH ×2 (16:23→21:27)
--- NOTE | 2018-12-19 18:27 | WOCRNPDOC ---
WOCRN Advanced Assessment Note - Skin Integrity Problem, Advanced Assess Left Anterior Ankle Pressure Injury Dressing Type: Open to Air Site Measurement - Head-to-Toe Length X Width X Depth (cm): 0.8x1.3x0.1 Pressure Injury Stage: Deep Tissue Injury (DTI), Auto Rebuilder Related Pressure Injury (likely SCD/NYDIA/Socks) Pressure Injury Present on Admit: Yes Skin Integrity Problem Comment: Device related, but which device is unclear. Bilateral blanching heels/elbows. Other than this pressure injury which is device related there are no other concerns. Maryan FROST alerted. Lamont FROST in room. Wound care will follow. Left Lateral Distal Dorsal Foot Dressing Type: Open to Air Exudate Amount: None Wound Bed Constitution: Scab Site Measurement - Head-to-Toe Length X Width X Depth (cm): 0.5x0.9x0.1 Skin Integrity Problem Comment: Scab unknown etiology. No concerns.
[2018-12-20] MEDS ORDERED: POTASSIUM CL 20 MEQ/15 ML UDCUP PO ONE (05:27)
[2018-12-20] MEDS ORDERED: CALCIUM GLUCONATE 50 ML IV ONE (05:28)
[2018-12-20] MEDS: THIAMINE HCL 500 MG in NS 100 ML IV SCH ×3 (06:12→21:26)
[2018-12-20] MEDS: LEVOTHYROXINE 100 MCG TAB PO SCH (06:14)
[2018-12-20] MEDS ORDERED: PROTOCOL POTASSIUM 1 DOSE MISC PRN (07:13)
[2018-12-20] MEDS ORDERED: PROTOCOL CALCIUM 1 DOSE IV PRN (07:13)
[2018-12-20] MEDS ORDERED: PROTOCOL MAGNESIUM 1 DOSE IV PRN (07:13)
[2018-12-20] MEDS ORDERED: MAGNESIUM SULF 1 GM/DEXTROSE 100 ML IV ONE (08:11)
[2018-12-20] MEDS ORDERED: POTASSIUM CL 20 MEQ TAB ONE (08:57)
[2018-12-20] MEDS ORDERED: THIAMINE HCL 500 MG in NS 100 ML IV SCH (09:00)
[2018-12-20] MEDS: MULTIVITAMINS 1 EACH TAB PO SCH (09:01)
[2018-12-20] MEDS: METOPROLOL TARTRATE 50 MG TAB PO SCH ×2 (09:01→20:17)
[2018-12-20] MEDS: MAGNESIUM OXIDE 400 MG TAB PO SCH ×2 (09:01→20:17)
[2018-12-20] MEDS: LISINOPRIL 10 MG TAB PO SCH (09:02)
--- NOTE | 2018-12-20 09:18 | TRAUMAPN ---
Trauma Progress Note Assessment/Plan: 83yo F s/p fall c multiple L sided rib fx, rhabdo, multiple medical issues - patient has no chest tenderness. Her lungs are clear. Discussed IS, pulm toilet. - has a lot of medical comorbidities which are being appropriately managed, no new issues from trauma service standpoint Subjective: no complaints Objective: Vital Signs Temp Pulse Resp BP Pulse Ox 36.6 C 62 20 143/85 H 93 12/20/18 06:00 12/20/18 09:01 12/20/18 08:00 12/20/18 09:02 12/20/18 08:00 Laboratory Results 12/19/18 05:30 12/20/18 04:30 12/19/18 12/20/18 12/21/18 05:59 05:59 05:59 Intake Total 2631 3066 Output Total 600 300 Balance 2031 2766 PT 17.1 SEC (12.0-15.0) H 12/19/18 05:30 INR 1.46 (0.83-1.16) H 12/19/18 05:30 - C-Spine Clearance Cervical Spine Cleared: Yes Provider who Cleared Cervical Spine: Martha by CT
[2018-12-20] MEDS ORDERED: POTASSIUM CL 20 MEQ TAB PO ONE ×3 (09:30→10:58)
--- NOTE | 2018-12-20 09:41 | ECHO ---
[email or web address] [address] [address] Main: [phone] Echocardiography Examination Transesophageal Name: RIC JUDGE MR#: [id number] Study Date: 12/19/2018 Study Time: 02:30 PM Date of : 1935 Age: 83 year(s) Height: ( ) Weight: ( ) BSA: Gender: Female Examination: JOSEPHINE Contrast: I.V. dose of agitated saline Image Quality: Adequate Rhythm: Heart Rate: BP: / Indication: LA thrombus Procedure Staff Referring Physician: Wet Crown Blocking Operator: Morenita Navarro [facility] Reading Physician: Jamila Watts MD Requesting Provider: Clint Johnson DO Indication: LA thrombus Acute complication: None Measurements AV/MV Label Value Normal Value MV PGmax 6 mmHg MV PGmean 2 mmHg MV VTI 31.8 cm Conclusions Normal LV systolic function Normal function of bioprosthetic mitral valve with trivial mitral regurgitation and normal gradients across the bioprosthesis There is a large partially mobile thrombus associated with the lower portion of the left atrium but not impacting the bioprosthetic mitral valve. This measures at least 4 x 2 cm and is multi lobed. There is evidence of an oversewn left atrial appendage containing thrombus, cannot exclude connection between the left atrium and the left atrial appendage. Aortic valve is normal in structure and function Negative bubble study Mild atheroma in visualized portions of the descending aorta Patient: RIC JUDGE Study Date: 12/19/2018 Page 1 of 2 02:30 PM Findings Left Atrium: Left atrial enlargement. Spontaneous contrast in the left atrium. There is a definite large thrombus in the atrial cavity. Left Atrium Appendage: The left atrial appendage appears sewn over. There is a thrombus. IAS: An agitated saline study was performed and was negative for intracardiac shunting. Right Atrium: No thrombus is identified in the right atrium. Mitral Valve: A bioprosthetic mitral valve is in place. The prosthetic mitral valve leaflets appear normal. The mitral valve prosthesis exhibits normal function. Trivial MV prosthesis regurgitation. Mitral valve prosthesis regurgitation is transvalvular. No prosthesis stenosis. Aortic Valve: The aortic valve is structurally normal and trileaflet. No aortic valve regurgitation. There is no aortic stenosis. Tricuspid Valve: Mild tricuspid regurgitation. Aorta: Mild atheroma in the descending aorta. Exam Details Procedure Ordered: JOSEPHINE Procedure Status: Routine study Image Quality: Adequate Consent: Risks, alternatives of procedure explained to patient, informed consent obtained Probe Insertion: Attending wafer mounter Contrast: I.V. dose of agitated salineIntravenous contrast was administered to evaluate shunting Facility Location: Cardiac Echo 1 (No Signature Object) Patient: RIC JUDGE Study Date: 12/19/2018 Page 2 of 2 02:30 PM [id number]
--- NOTE | 2018-12-20 10:51 | SOAPPROG ---
RAMONE Progress Note Assessment/Plan: Assessment: Cardiology consultation performed and dictated. 83 y/o woman with following cardiac issues: --had BIOMVR done in 2005 at [facility]. --took coumadin for a while but didn't like going to coumadin clinic and stopped many years ago. --hasn't seen a paving supervisor in years presented 12/18/18 with fall and TTE and JOSEPHINE showed LVEF 63%, normal functioning BIOMVR, large LA clot along medial wall, moderate TR and normal PA pressures. Pt today denies CP, CARDENAS, or shortness of breath. Her daughter in law is out bedside. I's >> O's. REC: 1)lasix 40mg IV x one 2)ideally would restart Coumadin for goal INR 2.0-3.0 to be followed in [facility] system. NOAC agents not approved for patients with prosthetic heart valves. Left atrial thrombus probably more related to her afib of unknown duration then BIOMVR dysfunction. 3)no attempted cardioversion for now. 12/20/18 10:46 Subjective: denies CP or rest dyspnea or PND. Denies heart palpitations. Objective: Vital Signs Temp Pulse Resp BP Pulse Ox 36.6 C 62 21 H 143/85 H 97 12/20/18 06:00 12/20/18 09:01 12/20/18 09:00 12/20/18 09:02 12/20/18 09:00 Laboratory Results 12/19/18 05:30 12/20/18 04:30 12/19/18 12/20/18 12/21/18 05:59 05:59 05:59 Intake Total 2631 3066 Output Total 600 300 Balance 2031 2766 PT 17.1 SEC (12.0-15.0) H 12/19/18 05:30 INR 1.46 (0.83-1.16) H 12/19/18 05:30 Physical Exam - Physical Exam General Appearance: alert EENT: normal ENT inspection Neck: full range of motion Respiratory: lungs clear Cardiac/Chest: systolic murmur, irregularly irregular, No gallop, No JVD Peripheral Pulses: 2+: carotid (R), carotid (L), femoral (R), femoral (L), dorsalis-pedis (R), dorsalis-pedis (L) Abdomen: non-tender, No guarding, No ascites Skin: warm/dry Extremities: No pedal edema Neuro/Psych: alert ICD10 Worksheet Patient Problems: Problems Problem Status Onset Altered mental status Acute Hypokalemia Acute Rib fracture Acute Tachycardia Acute
[2018-12-20] MEDS ORDERED: FUROSEMIDE 40 MG/4 ML VIAL IVP ONE (10:57)
--- NOTE | 2018-12-20 11:42 | GCON ---
[f rep st] CONSULTATION CARDIOLOGY NEW PATIENT CONSULT DATE OF CONSULTATION: 12/20/2018 REFERRING PHYSICIAN: Lainey Hoffman MD REASON FOR CONSULTATION: Evaluate woman with remote bioprosthetic mitral valve replacement and atria l fibrillation of unknown duration and moderate-size clot in the left atrium. HISTORY OF PRESENT ILLNESS: I was asked by Dr. Lainey Hoffman to consult for the above reasons. The patient is an 83-year-old woman with the following cardiac history. She had a bioprosthetic mitral v alve replacement done in 2005 at [facility] in [place], [place]. She reports she took Cou madin for a while but then got frustrated with going to Coumadin Clinic and stopped it many years ago . She has not seen a tube drawing supervisor in years. She also has depression and heavy alcohol use and a pre vious DVT and hypothyroidism. She was brought by her family to [facility] 2 days ago with decreased mental status and a fall with rib fractures. A transthoracic and confirmed by transe sophageal echoes demonstrates an LVEF of 63% with normal functioning bioprosthetic mitral valve with normal gradients and no mitral regurgitation. There is moderate tricuspid insufficiency with estimat ed normal pulmonary arterial pressures. There is a moderate-size clot in the left atrial medial wall . It appears separate from the mitral valve prosthesis. Today, the patient mostly complains of rib pain. She denies chest pressure or rest shortness of breath. She has no headache. PAST MEDICAL HISTORY: Alcoholism, depression, new AFib of unknown duration, previous bioprosthetic m itral valve replacement in 2005 at [facility], previous DVT, and hypothyroidism. CURRENT MEDICATIONS: 1. Heparin drip. 2. Ceftriaxone 1 g IV daily. 3. Synthroid 100 mcg p.o. q.a.m. 4. Lisinopril 10 mg p.o. q.a.m. ALLERGIES: Penicillin. SOCIAL HISTORY: The patient lives in [place]. She does not smoke. She has heavy alcohol daily. FAMILY HISTORY: Unremarkable for premature coronary artery disease. REVIEW OF SYSTEMS: Patient reports no recent fevers, chills, or GI bleed symptoms such as hematemesi s, melena, or bright red blood per rectum. Rest of 10-point review of systems is negative. PHYSICAL EXAM: VITAL SIGNS: Afebrile, pulse 62 and irregularly irregular, blood pressure 143/85, re spirations 22, 1 L/minute 97%. Weight 74 kg. GENERAL: A normal-appearing woman in no acute distres s without chest pain or using accessory respiratory muscles. EYES: Pupils equal, reactive to light. ENT: Oral mucosa with no cyanosis. NECK: Jugular venous pressure to 8 cm. Carotid pulses 2+ abad aterally with no obvious bruits. No thyromegaly noted. LUNGS: Clear to auscultation bilaterally wi thout rales, rhonchi, or wheezing. HEART: Irregularly irregular rhythm with 1/6 nonradiating systol ic murmur and no S3. ABDOMEN: Soft and nontender. No guarding or rebound. No hepatosplenomegaly o r ascites. EXTREMITIES: 2+ peripheral pulses including femoral and pedal pulses. No edema noted. MUSCULOSKELETAL: No scoliosis. NEUROLOGIC: Awake and alert. NECK: No nuchal rigidity. SKIN: No bleeding or cyanosis. LABS: Sodium 140, potassium 3.3, chloride 117, bicarb 21, BUN 23, creatinine 0.6, glucose 76, albumi n 1.8. IMPRESSION: An 83-year-old woman with remote sternotomy and bioprosthetic mitral valve replacement i n 2005 with atrial fibrillation, rate controlled of unknown duration, and normal left ventricle funct ion with a moderate-size clot in the left atrium. She is high risk for not taking her Coumadin corre ctly and then toxicities, but I think Coumadin is better than using one of the novel oral anticoagula nt agents off label. She also has gotten a lot of intravenous fluid over the last 2 days with trauma resuscitation. RECOMMENDATIONS: 1. Would give Lasix 40 mg IV x1. 2. Would give KCl 40 mEq p.o. x1. 3. Would start on Coumadin 5 mg daily overlapping with the heparin drip for an INR of 2.0 to 3.0. T he patient's [id number] is at bedside and reports the family will ensure that she follows up wit h the [facility] in [place]. 4. Feel it is okay from a heart standpoint to transfer to [facility] for continued hospitalized care. /[id number]/MODL
--- NOTE | 2018-12-20 14:19 | PDINTPN ---
Ladle Pourer Progress Note Assessment/Plan: ASSESSMENT 83-year-old female with bioprosthetic MVR, etoh dependence admitted with mechanical fall resulting in L sided rib fractures, etoh w/d and mitral valve thrombus # etoh w/d. resolved # Wernicke's encephalopathy. improved after thiamine # h/o bioprosthetic MVR 2005. 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 was on pradaxa due to warfarin adherence issues. Now family states they will help with warfarin # left-sided rib fractures. Due to mechanical fall, no ptx. conservative management # T1 transverse process fracture, nondisplaced. # HTN # UTI # atrial fibrillation # Hypothyroidism. TSH 39 on admission. Presentation not consistent with mixed edema coma # hypokalemia and hypomagnesemia. due to etoh and poor solute intake PLAN # CTX for UTI (3 day total course) # heparin gtt # warfarin 5 mg started 12/20/[address] Lerma after discussions with family # lasix as needed # appreciate input from CTS and cardiology # stop CIWA as patient has completed w/d # continue high dose thiamine for wernike's # restart Synthroid # check blood cultures given MV thrombus # Feeding - NPO # Analgesia APAP, # Sedation none # Thromboprophylaxis - hep gtt # Head of bed elevated # Ulcer prophylaxis - H2 katerine # Glucose SSI # Skin no skin breakdown # Delirium - delirium precautions Objective: Vital Signs Temp Pulse Resp BP Pulse Ox 36.6 C 76 20 131/94 H 98 12/20/18 06:00 12/20/18 12:00 12/20/18 12:00 12/20/18 10:00 12/20/18 12:00 Laboratory Results 12/19/18 05:30 12/20/18 04:30 12/19/18 12/20/18 12/21/18 05:59 05:59 05:59 Intake Total 2631 3066 Output Total 600 300 300 Balance 2031 2766 -300 PT 17.1 SEC (12.0-15.0) H 12/19/18 05:30 INR 1.46 (0.83-1.16) H 12/19/18 05:30 ICD10 Worksheet Patient Problems: Problems Problem Status Onset Altered mental status Acute Hypokalemia Acute Rib fracture Acute Tachycardia Acute
[2018-12-20] MEDS: WARFARIN SODIUM 5 MG TAB PO SCH (15:00)
[2018-12-20] MEDS: HEPARIN/DEXTROSE 500 ML IV SCH (17:47)
[2018-12-20] MEDS: ACETAMINOPHEN 325 MG TAB PO PRN (20:17)
[2018-12-21] MEDS: THIAMINE HCL 500 MG in NS 100 ML IV SCH ×3 (05:09→22:03)
[2018-12-21] MEDS: LEVOTHYROXINE 100 MCG TAB PO SCH (05:10)
[2018-12-21] MEDS: METOPROLOL TARTRATE 50 MG TAB PO SCH ×2 (09:25→20:29)
[2018-12-21] MEDS: LISINOPRIL 10 MG TAB PO SCH (09:25)
[2018-12-21] MEDS: MULTIVITAMINS 1 EACH TAB PO SCH (09:25)
[2018-12-21] MEDS: MAGNESIUM OXIDE 400 MG TAB PO SCH ×2 (09:26→20:29)
--- NOTE | 2018-12-21 09:35 | SOAPPROG ---
RAMONE Progress Note Assessment/Plan: Assessment: 83 y/o woman with following cardiac issues: --had BIOMVR done in 2005 at [facility]. --took coumadin for a while but didn't like going to coumadin clinic and stopped many years ago. --hasn't seen a firer portable boiler in years presented 12/18/18 with fall and TTE and JOSEPHINE showed LVEF 63%, normal functioning BIOMVR, large LA clot along medial wall, moderate TR and normal PA pressures. She denies CP, rest shortness of breath, PND, near syncope or palpitations. Her diastolic BP is still high. No signs of angina or CHF. REC: 1)increase Lisinopril to 20mg PO qam. 2)rest of meds without changes. 3)qam: INRs, Stop Heparin get when INR > 2.0 4)close follow up with [facility] and [facility] will sign off. Please call if anymore cardiac concerns. Thanks. 12/21/18 09:27 Subjective: Sitting up in chair eating breakfast happy. Sore ribs are better. Denies CP, rest shortness of breath or palpitations or near syncope. Objective: Vital Signs Temp Pulse Resp BP Pulse Ox 37.1 C 82 21 H 129/86 H 96 12/21/18 08:00 12/21/18 08:00 12/21/18 08:00 12/21/18 08:00 12/21/18 08:00 Microbiology 12/19/18 05:30 Urine Culture - Final Urine,Clean Catch Escherichia Coli One [place] Type Laboratory Results 12/21/18 04:40 12/21/18 04:40 12/20/18 12/21/18 12/22/18 05:59 05:59 05:59 Intake Total 3066 1854 Output Total 300 1800 Balance 2766 54 PT 17.1 SEC (12.0-15.0) H 12/19/18 05:30 INR 1.46 (0.83-1.16) H 12/19/18 05:30 Physical Exam - Physical Exam General Appearance: no apparent distress EENT: normal ENT inspection Neck: full range of motion Respiratory: lungs clear Cardiac/Chest: systolic murmur (1/6 MARIAJOSE heard), irregularly irregular, No gallop , No JVD Peripheral Pulses: 2+: carotid (R), carotid (L), femoral (R), femoral (L), dorsalis-pedis (R), dorsalis-pedis (L) Abdomen: non-tender, No guarding, No rebound Skin: warm/dry Extremities: non-tender, No pedal edema Neuro/Psych: No facial droop ICD10 Worksheet Patient Problems: Problems Problem Status Onset Altered mental status Acute Hypokalemia Acute Rib fracture Acute Tachycardia Acute
[2018-12-21] MEDS ORDERED: MAGNESIUM SULF 1 GM/DEXTROSE 100 ML IV ONE (09:53)
[2018-12-21] MEDS ORDERED: CALCIUM GLUCONATE 50 ML IV ONE (09:54)
[2018-12-21] MEDS ORDERED: LISINOPRIL 10 MG TAB PO ONE (10:00)
--- NOTE | 2018-12-21 10:31 | SOAPPROG ---
SOAP Progress Note Assessment/Plan: Assessment: Plan: Subjective: alert and conversive lungs clear, minmal pain from left rib fx abd soft, nt assess- tolerating rib fx well, no pain control issues. trauma surgery will sign off.. Objective: Vital Signs Temp Pulse Resp BP Pulse Ox 37.1 C 82 21 H 129/86 H 96 12/21/18 08:00 12/21/18 08:00 12/21/18 08:00 12/21/18 09:50 12/21/18 08:00 Microbiology 12/19/18 05:30 Urine Culture - Final Urine,Clean Catch Escherichia Coli One [place] Type Laboratory Results 12/21/18 04:40 12/21/18 04:40 12/20/18 12/21/18 12/22/18 05:59 05:59 05:59 Intake Total 3066 1854 Output Total 300 1800 Balance 2766 54 PT 17.1 SEC (12.0-15.0) H 12/19/18 05:30 INR 1.46 (0.83-1.16) H 12/19/18 05:30 ICD10 Worksheet Patient Problems: Problems Problem Status Onset Altered mental status Acute Tachycardia Acute Hypokalemia Acute Rib fracture Acute
--- NOTE | 2018-12-21 10:45 | PDINTPN ---
Audiovisual Production Specialist Progress Note Assessment/Plan: ASSESSMENT 83-year-old female with bioprosthetic MVR, etoh dependence admitted with mechanical fall resulting in L sided rib fractures, etoh w/d and mitral valve thrombus # etoh w/d. resolved # Wernicke's encephalopathy. improved after thiamine # h/o bioprosthetic MVR 2005. 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 was on pradaxa due to warfarin adherence issues. Now family states they will help with warfarin # left-sided rib fractures. Due to mechanical fall, no ptx. conservative management # T1 transverse process fracture, nondisplaced. # HTN # UTI # atrial fibrillation # Hypothyroidism. TSH 39 on admission. Presentation not consistent with mixed edema coma. Was not taking. Needs OP f/u with PCP # hypokalemia and hypomagnesemia. due to etoh and poor solute intake PLAN # CTX for UTI (3 day total course) # heparin gtt bridge to warfarin, if discharged prior to being therapeutic, may consider lovenox # warfarin 5 mg started 12/20/[address] Lerma after discussions with family # stop thiamine # continue Synthroid (restarted this admission), needs OP follow up with repeat TSH 6-8 weeks # appreciate input from CTS and cardiology # Feeding - NPO # Analgesia APAP, # Sedation none # Thromboprophylaxis - hep gtt # Head of bed elevated # Ulcer prophylaxis - NA # Glucose SSI # Skin no skin breakdown # Delirium - delirium precautions I will sign off, please feel free to call with questions or concerns. Subjective: No events overnight. Downgraded based on clinical stability. Electrolytes repleted, warfarin started last night. Working with PT. No more withdrawal symptoms. No fevers, chills, nausea, vomiting. Objective: Vital Signs Temp Pulse Resp BP Pulse Ox 37.1 C 82 21 H 129/86 H 96 12/21/18 08:00 12/21/18 08:00 12/21/18 08:00 12/21/18 09:50 12/21/18 08:00 Microbiology 12/19/18 05:30 Urine Culture - Final Urine,Clean Catch Escherichia Coli One [place] Type Laboratory Results 12/21/18 04:40 12/21/18 04:40 12/20/18 12/21/18 12/22/18 05:59 05:59 05:59 Intake Total 3066 1854 Output Total 300 1800 Balance 2766 54 PT 17.1 SEC (12.0-15.0) H 12/19/18 05:30 INR 1.46 (0.83-1.16) H 12/19/18 05:30 Physical Exam - Physical Exam General Appearance: alert, no apparent distress EENT: PERRL/EOMI, normal ENT inspection Neck: non-tender, full range of motion Respiratory: chest non-tender, lungs clear, normal breath sounds Cardiac/Chest: irregularly irregular, No edema, No diastolic murmur, No systolic murmur Abdomen: non-tender, soft Back: Normal inspection Skin: normal color, warm/dry Extremities: normal range of motion, non-tender, normal inspection Neuro/Psych: no motor/sensory deficits, alert, normal mood/affect, oriented x 3 ICD10 Worksheet Patient Problems: Problems Problem Status Onset Altered mental status Acute Hypokalemia Acute Rib fracture Acute Tachycardia Acute
--- NOTE | 2018-12-21 12:12 | HOSPPROG ---
Hospitalist Progress Note Assessment/Plan: # multiple fractures - T1 transverse process, 3rd, 4th, 5th, 6th ribs - trauma signed off - pain control adequate # LA thrombus - more likely from a-fib than from her MV - no surgical intervention - cont heparin gtt bridge to warfarin # bioprosthetic MV replacement - AC as above # atrial fib - AC as above - currently NSR, cont metop # etOH abuse - no withdrawal currently # Wernicke's - s/p thiamine # acute on chronic metabolic encephalopathy - seen by ACCOUNT LIAISON, no cog eval done # hypothyroid - likely not taking synthroid at home - dose increased here # htn - lisino increased, cont metop # ?UTI e. coli - change to PO keflex today # pcn allergy - will give kelfex as she has tolerated rocephin Subjective: no acute events; lying in bed Objective: Vital Signs Temp Pulse Resp BP Pulse Ox 37.1 C 82 21 H 129/86 H 96 12/21/18 08:00 12/21/18 08:00 12/21/18 08:00 12/21/18 09:50 12/21/18 08:00 Microbiology 12/19/18 05:30 Urine Culture - Final Urine,Clean Catch Escherichia Coli One [place] Type Laboratory Results 12/21/18 04:40 12/21/18 04:40 12/20/18 12/21/18 12/22/18 05:59 05:59 05:59 Intake Total 3066 1854 Output Total 300 1800 Balance 2766 54 PT 17.1 SEC (12.0-15.0) H 12/19/18 05:30 INR 1.46 (0.83-1.16) H 12/19/18 05:30 [address] reviewed CTs reviewed echo reviewed - Physical Exam Constitutional: no apparent distress, appears nourished Cardiovascular: regular rate and rhythym, no murmur, rub, or gallop Respiratory: no rales or rhonchi, clear to auscultation Gastrointestinal: soft, non-tender abdomen, no palpable masses, No guarding, No rebound ICD10 Worksheet Patient Problems: Problems Problem Status Onset Altered mental status Acute Hypokalemia Acute Rib fracture Acute Tachycardia Acute
--- NOTE | 2018-12-21 13:55 | ASMTCMCOM ---
CM Note CM Note Notes: CM met with pt and his family today to update on discharge process. Pt has been approved for SNF by [facility], family provided with list will review and make choice. CM initated SNF referrals to [facility] contracted facilities. Family is supportive. Plan: SNF, pending family choice. Date Signed: 12/21/2018 01:54 PM Electronically Signed By:CATALINA Cifuentes
[2018-12-21] MEDS: WARFARIN SODIUM 5 MG TAB PO SCH (15:14)
[2018-12-21] MEDS: ACETAMINOPHEN 325 MG TAB PO PRN (15:14)
[2018-12-21] MEDS ORDERED: CEPHALEXIN 500 MG CAP PO SCH (16:00)
--- NOTE | 2018-12-21 16:58 | ASMTCMCOM ---
CM Note CM Note Notes: Met with pt's daughter who was adament that it is not safe for pt to be discharged home. CM provided support and education about our recommendation for SNF and that she would not be safe going home. She appreciated our support. She and her siblings are appropriately supportive of trying to get pt to SNF with plan for her to live with one of the siblings. She requested support from staff to continue to help discuss discharge to SNF as safe option. Family is looking at choices but are thinking [facility] might be most appropriate due to location. CM to follow. Plan: SNF pending family choice. Date Signed: 12/21/2018 04:58 PM Electronically Signed By:CATALINA Cifuentes
[2018-12-21] MEDS: HEPARIN/DEXTROSE 500 ML IV SCH (22:02)
[2018-12-22] MEDS: ACETAMINOPHEN 325 MG TAB PO PRN ×3 (00:06→20:35)
[2018-12-22] MEDS: LEVOTHYROXINE 100 MCG TAB PO SCH (05:43)
[2018-12-22] MEDS: THIAMINE HCL 500 MG in NS 100 ML IV SCH ×2 (05:43→13:02)
[2018-12-22 05:57] LABS: INR 1.33 (0.83-1.16); PROTIME(PATIENT) 15.9 SEC (12.0-15.0)
[2018-12-22] MEDS ORDERED: CALCIUM GLUCONATE 50 ML IV ONE (07:55)
[2018-12-22] MEDS ORDERED: MAGNESIUM SULF 1 GM/DEXTROSE 100 ML IV ONE (07:55)
[2018-12-22] MEDS: LISINOPRIL 20 MG TAB PO SCH (08:17)
[2018-12-22] MEDS: MULTIVITAMINS 1 EACH TAB PO SCH (08:17)
[2018-12-22] MEDS: METOPROLOL TARTRATE 50 MG TAB PO SCH ×2 (08:17→20:59)
[2018-12-22] MEDS: MAGNESIUM OXIDE 400 MG TAB PO SCH ×2 (08:17→20:59)
--- NOTE | 2018-12-22 09:00 | HOSPPROG ---
Hospitalist Progress Note Assessment/Plan: 83 yo female with h/o alcohol abuse presented after fall. # multiple fractures - T1 transverse process, 3rd, 4th, 5th, 6th ribs - trauma signed off - pain control adequate # LA thrombus - more likely from a-fib than from her MV - appreciate CV surgery input, no surgical intervention planned - cont heparin gtt bridge to warfarin, INR still sub-therapeutic at 1.33 # bioprosthetic MV replacement - AC as above # atrial fib - AC as above - currently NSR, cont metop # htn - lisinopril increased to 20 mg yest, cont metop # etOH abuse - no withdrawal currently # Wernicke's - s/p thiamine # acute on chronic metabolic encephalopathy - seen by ACADEMIC SUPPORT DIRECTOR, no cog eval done here # hypothyroid - adherence to meds questionable - cont increased dose levothryoxine - recheck TSH 4-6 weeks # UTI - s/p 3 days IV ceftriaxone Subjective: Pt feels well. Denies CP or SOB. No wong or vision changes. Says she feels unsteady on her feet. Objective: Vital Signs Temp Pulse Resp BP Pulse Ox 36.4 C 123 H 17 174/124 H 98 12/22/18 08:00 12/22/18 08:00 12/22/18 08:00 12/22/18 08:00 12/22/18 08:00 Microbiology 12/19/18 05:30 Urine Culture - Final Urine,Clean Catch Escherichia Coli One [place] Type Laboratory Results 12/22/18 05:35 12/22/18 05:35 12/21/18 12/22/18 12/23/18 05:59 05:59 05:59 Intake Total 1854 2123 Output Total 1800 500 Balance 54 1623 PT 15.9 SEC (12.0-15.0) H 12/22/18 05:35 INR 1.33 (0.83-1.16) H 12/22/18 05:35 - Physical Exam Constitutional: no apparent distress Eyes: PERRL Ears, Nose, Mouth, Throat: moist mucous membranes Cardiovascular: irregularly irregular Respiratory: no respiratory distress, clear to auscultation Gastrointestinal: normoactive bowel sounds, soft, non-tender abdomen Skin: warm Musculoskeletal: full muscle strength Neurologic: AAOx3 Psychiatric: poor insight ICD10 Worksheet Patient Problems: Problems Problem Status Onset Altered mental status Acute Hypokalemia Acute Rib fracture Acute Tachycardia Acute
--- NOTE | 2018-12-22 14:26 | ASMTCMCOM ---
CM Note CM Note Notes: Spoke with patient and some of her family members. They have selected [facility] for discharge. Case Management will coordinate d/c, likely tomorrow 12/23. Date Signed: 12/22/2018 02:25 PM Electronically Signed By:Farhana Dutton RN
[2018-12-22] MEDS: HEPARIN/DEXTROSE 500 ML IV SCH (16:12)
[2018-12-22] MEDS: WARFARIN SODIUM 5 MG TAB PO SCH (16:12)
[2018-12-23] MEDS: ACETAMINOPHEN 325 MG TAB PO PRN ×3 (04:11→21:59)
[2018-12-23 05:46] LABS: INR 1.96 (0.83-1.16); PROTIME(PATIENT) 21.4 SEC (12.0-15.0)
[2018-12-23 07:02] LABS: CREATINE KINASE 214 IU/L (0-156)
--- NOTE | 2018-12-23 09:01 | HOSPPROG ---
Hospitalist Progress Note Assessment/Plan: 83 yo female with h/o alcohol abuse presented after fall. # multiple fractures - T1 transverse process, 3rd, 4th, 5th, 6th ribs - trauma signed off - pain control adequate # LA thrombus - more likely from a-fib than from her MV - appreciate CV surgery input, no surgical intervention planned - d/c heparin, INR now 1.96 on coumadin, will ask pharmacy to dose # bioprosthetic MV replacement - AC as above # atrial fib - poor rate control with resting HR 120's this am, may need fluids - NS bolus - AC as above, d/c heparin - cont metoprolol as BP tolerates, could consider addition of digoxin if rate and BP not better with fluid bolus # htn - SBP low this am in the 80's - hold lisinopril - NS bolus - cont metop for rate control as BP tolerates # right sided abdominal pain - send stat H&H - low threshold to image to r/o RP bleed with low BP and increased HR this am on heparin drip with nearly therapeutic INR # etOH abuse - no withdrawal currently # Wernicke's - s/p thiamine # acute on chronic metabolic encephalopathy - seen by STUDIO COUCH FRAME BUILDER, no cog eval done here # hypothyroid - adherence to meds questionable - cont increased dose levothryoxine - recheck TSH 4-6 weeks # UTI - s/p 3 days IV ceftriaxone # Dispo - cont inpt, d/c to SNF once stable, possibly 1-2 days Subjective: Pt c/o right sided abdominal pain. Rib fractures are on left side. No CP or SOB. No fevers. She says she is not drinking much. Objective: Vital Signs Temp Pulse Resp BP Pulse Ox 36.7 C 119 H 19 86/65 L 98 12/23/18 08:00 12/23/18 08:00 12/23/18 08:00 12/23/18 08:00 12/23/18 08:00 Laboratory Results 12/22/18 05:35 12/23/18 05:10 12/22/18 12/23/18 12/24/18 05:59 05:59 05:59 Intake Total 2123 1183 Output Total 500 Balance 1623 1183 PT 21.4 SEC (12.0-15.0) H 12/23/18 05:10 INR 1.96 (0.83-1.16) H 12/23/18 05:10 - Physical Exam Constitutional: no apparent distress Eyes: PERRL Ears, Nose, Mouth, Throat: moist mucous membranes Cardiovascular: irregularly irregular Respiratory: no respiratory distress, clear to auscultation Gastrointestinal: other (soft, nd, +TTP right side abdomen, no r/r/g, +BS) Skin: warm Musculoskeletal: full muscle strength Neurologic: other (A&O x2) Psychiatric: interacting appropriately ICD10 Worksheet Patient Problems: Problems Problem Status Onset Altered mental status Acute Hypokalemia Acute Rib fracture Acute Tachycardia Acute
[2018-12-23] MEDS ORDERED: NS 500 ML IV ONE (09:03)
[2018-12-23] MEDS: LISINOPRIL 20 MG TAB PO SCH (09:36)
[2018-12-23] MEDS: METOPROLOL TARTRATE 50 MG TAB PO SCH (11:03)
[2018-12-23] MEDS: LEVOTHYROXINE 100 MCG TAB PO SCH (11:04)
[2018-12-23] MEDS: MAGNESIUM OXIDE 400 MG TAB PO SCH ×2 (11:04→21:59)
[2018-12-23] MEDS: MULTIVITAMINS 1 EACH TAB PO SCH (11:04)
[2018-12-23] MEDS ORDERED: PHENYLEPHRINE HCL 50 MG in D5W 250 ML IV SCH (12:30)
[2018-12-23] MEDS ORDERED: IOPAMIDOL (ISOVUE-300) 100 ML BTL ONE (12:31)
[2018-12-23] MEDS: THIAMINE HCL 100 MG TAB PO SCH (12:34)
[2018-12-23] MEDS ORDERED: NS 1,500 ML IV ONE (13:00)
[2018-12-23] MEDS: NS 1,000 ML IV SCH (13:15)
[2018-12-23 13:28] LABS: PLATELET COUNT 155 10^3/uL (150-400)
--- NOTE | 2018-12-23 13:47 | ASMTCMCOM ---
CM Note CM Note Notes: Patient not stable for d/c today. Per hospitalist, d/c in 1-2 days. We will need to send 48 hours of notes to [facility] tomorrow, 12/24, to renew insurance auth for SNF. [facility] notified. Case Management will follow. Date Signed: 12/23/2018 01:46 PM Electronically Signed By:Farhana Dutton RN
--- NOTE | 2018-12-23 14:32 | PDINTPN ---
Ruby On Rails Developer Progress Note Assessment/Plan: ASSESSMENT 83-year-old female with bioprosthetic MVR, etoh dependence admitted with mechanical fall resulting in L sided rib fractures, etoh w/d and mitral valve thrombus course now complicated by acute retroperitoneal bleed # acute retroperitoneal bleed. In the setting of heparin bridging to warfarin with underlying alcohol abuse and advanced age. Heparin stopped 12/23 AM # hypotension. Related to above # acute on chronic anemia # etoh w/d. resolved # Wernicke's encephalopathy. improved after thiamine # h/o bioprosthetic MVR 2005. 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 was on pradaxa due to warfarin adherence issues. Now family states they will help with warfarin. now holding due to RP bleed # left-sided rib fractures. Due to mechanical fall, no ptx. conservative management # T1 transverse process fracture, nondisplaced. # HTN # UTI. s/p CTX # atrial fibrillation # Hypothyroidism. TSH 39 on admission. Presentation not consistent with mixed edema coma. Was not taking. Needs OP f/u with PCP # hypokalemia and hypomagnesemia. due to etoh and poor solute intake PLAN # PRBC now and as needed # suggest against more crystalloid is patient is artery see adequate boluses # trend H&H, expect hemoglobin to further drop as she re equilibrates after IV fluids # hold warfarin but suggest against given atrial thrombus # the patient further decompensates and bleed does not tamponade off suggest reversing with 4 factor concentrate (kcentra) # warfarin 5 mg started 12/20/[address] Lerma after discussions with family # stop thiamine # continue Synthroid # appreciate input from CTS and cardiology # Feeding - NPO in case patient further decompensates # Analgesia APAP, # Sedation none # Thromboprophylaxis - INR therapeutic, will hold due to bleed # Head of bed elevated # Ulcer prophylaxis - NA # Glucose SSI # Skin no skin breakdown # Delirium - delirium precautions IMAGING Personally reviewed interpreted patient's radiographic images well as formal radiology reads 12/23/2018 CT abdomen pelvis with contrast-Moderate to large right retroperitoneal hematoma. No evidence of active extravasation or identifiable source of bleeding. Near completely resolved left atrial thrombus, new tiny segmental infarctions and left kidney and superior pole of the spleen. New small left and trace right pleural effusions with associated bibasilar atelectasis. Patient is critically ill due to multiorgan dysfunction and life-threatening bleed in the setting of required anticoagulation for mitral valve thrombus is high risk for decompensation and . Total critical care time 55 min of which was spent evaluating patient at bedside reviewing imaging and directing resuscitation. Subjective: Hypotensive this a.m. With map 70 over 40s, tachycardic. More pallor. Acute drop in hemoglobin. After discussions with Dr. Hoffman CT abdomen pelvis with contrast ordered which discovered RP bleed. Hemodynamics now compensated after IV fluids and currently receiving PRBCs. Objective: Vital Signs Temp Pulse Resp BP Pulse Ox 35.7 C L 104 H 21 H 97/77 L 99 12/23/18 12:26 12/23/18 13:00 12/23/18 13:00 12/23/18 13:00 12/23/18 13:00 Laboratory Results 12/23/18 13:05 12/23/18 13:05 12/22/18 12/23/18 12/24/18 05:59 05:59 05:59 Intake Total 2123 1183 Output Total 500 Balance 1623 1183 PT 21.4 SEC (12.0-15.0) H 12/23/18 05:10 INR 1.96 (0.83-1.16) H 12/23/18 05:10 Physical Exam - Physical Exam EENT: PERRL/EOMI, normal ENT inspection, other (Dry mucous membranes) Neck: non-tender, full range of motion Respiratory: chest non-tender, lungs clear, normal breath sounds Cardiac/Chest: normal peripheral pulses, regular rate, rhythm, edema Abdomen: other (Left lower quadrant pain) Rectal: deferred Back: Normal inspection Skin: warm/dry, pallor, No cyanosis Extremities: normal range of motion, non-tender, normal inspection Neuro/Psych: no motor/sensory deficits, alert, normal mood/affect, oriented x 3 ICD10 Worksheet Patient Problems: Problems Problem Status Onset Altered mental status Acute Hypokalemia Acute Rib fracture Acute Tachycardia Acute
[2018-12-23] MEDS ORDERED: WARFARIN SODIUM 2.5 MG TAB PO ONE (16:00)
[2018-12-23] MEDS ORDERED: ALBUMIN 5% 250 ML BOTTLE IV ONE (16:58)
[2018-12-23] MEDS ORDERED: HUMAN PROTHROMBIN COMPLX(PCC) 500 UNIT/20 ML VIAL IV ONE (17:04)
[2018-12-23] MEDS ORDERED: PHYTONADIONE 10 MG in NS 50 ML IV ONE (17:04)
[2018-12-23] MEDS ORDERED: HUMAN PROTHROMBIN COMPLX(PCC) 1,500 UNIT/60 ML VIAL IV ONE (17:04)
--- NOTE | 2018-12-23 18:01 | SUROPNOTE ---
[facility] Operative Report - Surgery Central Line Insertion Procedure: Left Subclavian CVC Attending Physician: Dr. Cecilia Javier Anesthesiologist: N/A Anesthesia Type: N/A Indication: vascular access, hypotension Consent: the patient was counseled as to the risks, benefits, and alternatives to the procedure and they agreed to proceed. Signed consent was obtained and placed into chart. Time-Out: prior to the procedure, time-out was performed to verify patient's name, date of , correct procedure, correct side, correct site, correct patient position, correct radiographic data, and special equipment required. Pre-Op Dx: hypotension Post-Op Dx: hypotension Medications: none Description: Hand hygiene was performed. Pt was positioned supine and appropriate landmarks were identified (site was selected as the optimal site for procedure, given considerations of sterility and safety - thick neck, hair over insertion site and resistance to removing necklace). Skin above the left clavicle and left chest were prepped with Chloraprep (with time allowed to dry) prior to catheter insertion and with maximal sterile precautions (including gown , sterile gloves, mask, cap, and large sterile draping). The site was locally anesthetized with lidocaine 1% (2 ml). Using landmarks, the left subclavian vein was punctured with an 18 gauage finder needle -> passage of guidewire -> passage of guidewire -> passage of dilator -> passage of CVC over guidewire. Return of venous blood from all ports, catheter was flushed. Catheter was sutured in place with silk suture and dressed with sterile dressing. Placement was confirmed by portable CXR. EBL: 0 ml Complications: none Specimens Sent: none Implants: N/A F/U: routine CVC care Cecilia Javier MD Pulmonary, Critical Care and Sleep Medicine [phone]
[2018-12-24] MEDS: NS 1,000 ML IV SCH (02:11)
[2018-12-24] MEDS ORDERED: CALCIUM GLUCONATE 50 ML IV ONE (05:18)
[2018-12-24 05:28] LABS: INR 1.92 (0.83-1.16); PROTIME(PATIENT) 21.1 SEC (12.0-15.0)
[2018-12-24] MEDS: LEVOTHYROXINE 100 MCG TAB PO SCH (05:55)
[2018-12-24] MEDS: THIAMINE HCL 100 MG TAB PO SCH (09:17)
[2018-12-24] MEDS: MULTIVITAMINS 1 EACH TAB PO SCH (09:18)
[2018-12-24] MEDS: MAGNESIUM OXIDE 400 MG TAB PO SCH ×2 (09:18→21:12)
--- NOTE | 2018-12-24 09:39 | HOSPPROG ---
Hospitalist Progress Note Assessment/Plan: 83 yo female with h/o alcohol abuse presented after fall. #Right-sided retroperitoneal bleed -s/p blood transfusion 12/23 -when restart AC will do only Coumadin given high-bleeding risk # Multiple fractures - T1 transverse process, 3rd, 4th, 5th, 6th ribs - trauma signed off - pain control adequate # LA thrombus - more likely from a-fib than from her MV - appreciate CV surgery input, no surgical intervention planned - AC held RP bleed # Bioprosthetic MV replacement - AC as above # Atrial fib - restart BB today. Holding AC #HTN - SBP low this am in the 's - hold lisinopril. # EtOH abuse - no withdrawal currently. Counseled on cessation # Wernicke's - s/p thiamine #Acute on chronic metabolic encephalopathy: improved # hypothyroid - adherence to meds questionable - cont increased dose levothryoxine - recheck TSH 4-6 weeks # UTI - s/p 3 days IV ceftriaxone #Diet: regular #DVT ppx: SCD Inpatient admission for serial labs, telemetry. High-risk for rebleed. Family bedside and questions answered Subjective: mild left flank pain Objective: Vital Signs Temp Pulse Resp BP Pulse Ox 36.8 C 118 H 20 101/79 98 12/24/18 04:00 12/24/18 06:00 12/24/18 06:00 12/24/18 06:00 12/24/18 06:00 Laboratory Results 12/24/18 05:05 12/23/18 12/24/18 12/25/18 05:59 05:59 05:59 Intake Total 1183 3709 Output Total 850 Balance 1183 2859 PT 21.1 SEC (12.0-15.0) H 12/24/18 05:05 INR 1.92 (0.83-1.16) H 12/24/18 05:05 - Time Spent With Patient Time Spent with Patient: greater than 35 minutes Time Spent with Patient: Greater than 35 minutes spent on this patients care, greater than 50% of time spent counseling, educating, and coordinating care regarding the above mentioned plan. - Physical Exam Constitutional: no apparent distress Eyes: PERRL Ears, Nose, Mouth, Throat: moist mucous membranes Cardiovascular: regular rate and rhythym Respiratory: no respiratory distress Gastrointestinal: other Genitourinary: No mason in urethra Skin: warm Musculoskeletal: other (left flank hematoma, mild right flank hematoma) Neurologic: CN II-XII Intact Psychiatric: encephalopathic ICD10 Worksheet Patient Problems: Problems Problem Status Onset Altered mental status Acute Hypokalemia Acute Rib fracture Acute Tachycardia Acute
[2018-12-24] MEDS: ACETAMINOPHEN 325 MG TAB PO PRN ×3 (10:10→21:12)
[2018-12-24] MEDS ORDERED: METOPROLOL TARTRATE 25 MG TAB PO SCH (11:30)
--- NOTE | 2018-12-24 15:02 | PDINTPN ---
Civil Attorney Progress Note Assessment/Plan: ASSESSMENT 83-year-old female with bioprosthetic MVR, etoh dependence admitted with mechanical fall resulting in L sided rib fractures, etoh w/d and mitral valve thrombus course now complicated by acute retroperitoneal bleed # acute retroperitoneal bleed. In the setting of heparin bridging to warfarin with underlying alcohol abuse and advanced age. Heparin stopped 12/23 AM. Hct stabilized. Last warfarin dose 12/22/18 # hypotension. Related to above # acute on chronic anemia # etoh w/d. resolved # Wernicke's encephalopathy. improved after thiamine # h/o bioprosthetic MVR 2005. 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 was on pradaxa due to warfarin adherence issues. Now family states they will help with warfarin. now holding due to RP bleed # left-sided rib fractures. Due to mechanical fall, no ptx. conservative management # T1 transverse process fracture, nondisplaced. # HTN # UTI. s/p CTX # atrial fibrillation # Hypothyroidism. TSH 39 on admission. Presentation not consistent with mixed edema coma. Was not taking. Needs OP f/u with PCP # hypokalemia and hypomagnesemia. due to etoh and poor solute intake PLAN # hold warfarin for 4 days then restart without bridge, as she is high risk and more likely to from being over anticoagulated than stroke, plus atrial thrombus nearly resolved on imaging # hold warfarin but suggest against given atrial thrombus # warfarin 5 mg started 12/20/[address] Lerma after discussions with family, last dose 12/22/18 # s/p thiamine # continue Synthroid # appreciate input from CTS and cardiology # Feeding - reg diet # Analgesia APAP, # Sedation none # Thromboprophylaxis - INR therapeutic, will hold due to bleed # Head of bed elevated # Ulcer prophylaxis - NA # Glucose SSI # Skin no skin breakdown # Delirium - delirium precautions IMAGING Personally reviewed interpreted patient's radiographic images well as formal radiology reads 12/23/2018 CT abdomen pelvis with contrast-Moderate to large right retroperitoneal hematoma. No evidence of active extravasation or identifiable source of bleeding. Near completely resolved left atrial thrombus, new tiny segmental infarctions and left kidney and superior pole of the spleen. New small left and trace right pleural effusions with associated bibasilar atelectasis. Patient is critically ill due to multiorgan dysfunction and life-threatening bleed in the setting of required anticoagulation for mitral valve thrombus is high risk for decompensation and . Total critical care time 55 min of which was spent evaluating patient at bedside reviewing imaging and directing resuscitation. 12/24/18 14:59 Subjective: Temporarily decompensated overnight unclear if related to bleeding or tachycardia from AFib. Central line placed. After more blood improved in pressures. Stable overnight. Asking for alcohol, no fevers, chills, nausea vomiting. Objective: Vital Signs Temp Pulse Resp BP Pulse Ox 36.7 C 116 H 20 137/95 H 92 12/24/18 11:43 12/24/18 14:00 12/24/18 14:00 12/24/18 14:00 12/24/18 14:00 Laboratory Results 12/24/18 09:15 12/24/18 05:05 12/23/18 12/24/18 12/25/18 05:59 05:59 05:59 Intake Total 1183 3709 Output Total 850 Balance 1183 2859 PT 21.1 SEC (12.0-15.0) H 12/24/18 05:05 INR 1.92 (0.83-1.16) H 12/24/18 05:05 Physical Exam - Physical Exam General Appearance: alert, no apparent distress EENT: PERRL/EOMI, normal ENT inspection Respiratory: chest non-tender, lungs clear Cardiac/Chest: normal peripheral pulses, regular rate, rhythm, edema Abdomen: normal bowel sounds, non-tender Skin: normal color, warm/dry, No cyanosis Extremities: normal range of motion, non-tender Neuro/Psych: no motor/sensory deficits, alert, normal mood/affect, oriented x 3 ICD10 Worksheet Patient Problems: Problems Problem Status Onset Altered mental status Acute Hypokalemia Acute Rib fracture Acute Tachycardia Acute
[2018-12-24] MEDS ORDERED: LACTULOSE 20 GM/30 ML UDCUP PO PRN (15:46)
[2018-12-24] MEDS ORDERED: BISACODYL 10 MG SUPP PR PRN (15:46)
[2018-12-24] MEDS ORDERED: MAGNESIUM HYDROXIDE 30 ML UDCUP PO PRN (15:46)
[2018-12-24] MEDS ORDERED: POLYETHYLENE GLYCOL 3350 17 GM PKT PO PRN (15:46)
[2018-12-24] MEDS ORDERED: BISACODYL 10 MG SUPP PR ONE (15:47)
--- NOTE | 2018-12-24 16:11 | ASMTCMCOM ---
CM Note CM Note Notes: I've sent [facility] all requested clinical updates in order for them to renew patient's authorization for SNF (it yesterday). All [facility] care team members still recommending SNF. Case Management will continue to follow. Current CM Discharge plan: [facility] Date Signed: 12/24/2018 04:10 PM Electronically Signed By:Farhana Dutton RN
[2018-12-24] MEDS: CITALOPRAM 20 MG TAB PO SCH (21:11)
[2018-12-24] MEDS: SENNOSIDES/DOCUSATE SODIUM TAB PO SCH (21:12)
[2018-12-24] MEDS: METOPROLOL TARTRATE 25 MG TAB PO SCH (21:12)
[2018-12-25 04:57] LABS: INR 1.55 (0.83-1.16); PROTIME(PATIENT) 17.9 SEC (12.0-15.0)
[2018-12-25] MEDS: THIAMINE HCL 100 MG TAB PO SCH (08:33)
[2018-12-25] MEDS: MAGNESIUM OXIDE 400 MG TAB PO SCH ×2 (08:33→22:00)
[2018-12-25] MEDS: SENNOSIDES/DOCUSATE SODIUM TAB PO SCH ×2 (08:33→22:00)
[2018-12-25] MEDS: CITALOPRAM 20 MG TAB PO SCH (08:33)
[2018-12-25] MEDS: METOPROLOL TARTRATE 25 MG TAB PO SCH (08:33)
[2018-12-25] MEDS: MULTIVITAMINS 1 EACH TAB PO SCH (08:33)
[2018-12-25] MEDS: LEVOTHYROXINE 100 MCG TAB PO SCH (08:36)
--- NOTE | 2018-12-25 08:42 | HOSPPROG ---
Hospitalist Progress Note Assessment/Plan: 83 yo female with h/o alcohol abuse presented after fall. #Right-sided retroperitoneal bleed -s/p blood transfusion 12/23. H/H and BP remain stable -when restart AC will do only Coumadin given high-bleeding risk # Multiple fractures - T1 transverse process, 3rd, 4th, 5th, 6th ribs - trauma signed off - pain control adequate # LA thrombus - more likely from a-fib than from her MV - appreciate CV surgery input, no surgical intervention planned - restart Coumadin only today # Bioprosthetic MV replacement - AC as above # Atrial fib - metoprolol 50mg BID #HTN - SBP low this am in the 's - hold lisinopril. # EtOH abuse - no withdrawal currently. Counseled on cessation # Wernicke's - s/p thiamine #Acute on chronic metabolic encephalopathy: improved # hypothyroid - adherence to meds questionable - cont increased dose levothryoxine - recheck TSH 4-6 weeks # UTI - s/p 3 days IV ceftriaxone #Diet: regular #DVT ppx: SCD Inpatient admission for serial labs, telemetry. High-risk for rebleed. Case discussed with Dr. Javier Subjective: no dizziness or lightheadedness Objective: Vital Signs Temp Pulse Resp BP Pulse Ox 36.8 C 117 H 22 H 156/110 H 100 12/25/18 08:00 12/25/18 08:00 12/25/18 08:00 12/25/18 08:00 12/25/18 08:00 Microbiology 12/19/18 15:00 Blood Culture - Final Blood 12/19/18 12:35 Blood Culture - Final Blood Laboratory Results 12/25/18 04:30 12/24/18 05:05 12/24/18 12/25/18 12/26/18 05:59 05:59 05:59 Intake Total 3709 990 Output Total 850 1201 Balance 2859 -211 PT 17.9 SEC (12.0-15.0) H 12/25/18 04:30 INR 1.55 (0.83-1.16) H 12/25/18 04:30 - Time Spent With Patient Time Spent with Patient: greater than 35 minutes Time Spent with Patient: Greater than 35 minutes spent on this patients care, greater than 50% of time spent counseling, educating, and coordinating care regarding the above mentioned plan. - Physical Exam Constitutional: no apparent distress Eyes: PERRL Ears, Nose, Mouth, Throat: moist mucous membranes Cardiovascular: tachycardia Respiratory: no respiratory distress Gastrointestinal: normoactive bowel sounds Genitourinary: No mason in urethra Musculoskeletal: other (BL flank ecchymoses) Neurologic: CN II-XII Intact Psychiatric: encephalopathic Lymph, Heme, Immunologic: no cervical LAD ICD10 Worksheet Patient Problems: Problems Problem Status Onset Altered mental status Acute Hypokalemia Acute Rib fracture Acute Tachycardia Acute
--- NOTE | 2018-12-25 12:12 | PDINTPN ---
Business Systems Technician Progress Note Assessment/Plan: ASSESSMENT 83-year-old female with bioprosthetic MVR, etoh dependence admitted with mechanical fall resulting in L sided rib fractures, etoh w/d and mitral valve thrombus course now complicated by acute retroperitoneal bleed # acute retroperitoneal bleed. In the setting of heparin bridging to warfarin with underlying alcohol abuse and advanced age. No procedures or trauma in groin. Heparin stopped 12/23 AM. Hct stabilized. Last warfarin dose 12/22/18 # hypotension. resolved. Related to above # acute on chronic anemia. Fe replete # etoh w/d. resolved # Wernicke's encephalopathy. improved after thiamine # h/o bioprosthetic MVR 2005. 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 was on pradaxa due to warfarin adherence issues. Now family states they will help with warfarin. now holding due to RP bleed # left-sided rib fractures. Due to mechanical fall, no ptx. conservative management # T1 transverse process fracture, nondisplaced. # HTN # UTI s/p CTX # atrial fibrillation # Hypothyroidism. TSH 39 on admission. Presentation not consistent with mixed edema coma. Was not taking. Needs OP f/u with PCP # hypokalemia and hypomagnesemia. due to etoh and poor solute intake PLAN # restart without bridge, as she is high risk and more likely to from being over anticoagulated than stroke, plus atrial thrombus nearly resolved on imaging # s/p thiamine # continue Synthroid # appreciate input from CTS and cardiology # Feeding - reg diet # Analgesia APAP, # Sedation none # Thromboprophylaxis - warfarin, scds # Head of bed elevated # Ulcer prophylaxis - NA # Glucose SSI # Skin no skin breakdown # Delirium - delirium precautions # okay to downgrade to PCU today IMAGING I personally reviewed interpreted patient's radiographic images well as formal radiology reads 12/23/2018 CT abdomen pelvis with contrast-Moderate to large right retroperitoneal hematoma. No evidence of active extravasation or identifiable source of bleeding. Near completely resolved left atrial thrombus, new tiny segmental infarctions and left kidney and superior pole of the spleen. New small left and trace right pleural effusions with associated bibasilar atelectasis. Subjective: Start on metoprolol last night without significant changes in blood pressure by improvements and heart rates. No new fevers, chills nausea vomiting. Serial hematocrit stable. INR trended down to 1.5. Objective: Vital Signs Temp Pulse Resp BP Pulse Ox 36.8 C 117 H 22 H 156/110 H 100 12/25/18 08:00 12/25/18 08:00 12/25/18 08:00 12/25/18 08:00 12/25/18 08:00 Microbiology 12/19/18 15:00 Blood Culture - Final Blood 12/19/18 12:35 Blood Culture - Final Blood Laboratory Results 12/25/18 04:30 12/24/18 05:05 12/24/18 12/25/18 12/26/18 05:59 05:59 05:59 Intake Total 3709 990 Output Total 850 1201 400 Balance 2859 -211 -400 PT 17.9 SEC (12.0-15.0) H 12/25/18 04:30 INR 1.55 (0.83-1.16) H 12/25/18 04:30 Physical Exam - Physical Exam General Appearance: alert, no apparent distress EENT: PERRL/EOMI, normal ENT inspection Neck: non-tender, full range of motion, normal inspection Respiratory: chest non-tender, lungs clear, normal breath sounds Cardiac/Chest: normal peripheral pulses, regular rate, rhythm, No edema Abdomen: normal bowel sounds, non-tender Skin: normal color, warm/dry, No cyanosis Extremities: normal range of motion, non-tender Neuro/Psych: no motor/sensory deficits, alert, normal mood/affect, oriented x 3 ICD10 Worksheet Patient Problems: Problems Problem Status Onset Altered mental status Acute Hypokalemia Acute Rib fracture Acute Tachycardia Acute
[2018-12-25] MEDS: ACETAMINOPHEN 325 MG TAB PO PRN (12:14)
[2018-12-25] MEDS ORDERED: WARFARIN SODIUM 5 MG TAB PO ONE (16:00)
--- NOTE | 2018-12-25 16:37 | ASMTCMCOM ---
CM Note CM Note Notes: Updates sent to [facility] per their request, pt not medically stable for d/c. [facility] to be sent updates for re-auth since auth has . Date Signed: 12/25/2018 04:36 PM Electronically Signed By:DANNY Ontiveros
[2018-12-25] MEDS: METOPROLOL TARTRATE 50 MG TAB PO SCH (22:00)
[2018-12-26 04:44] LABS: INR 1.45 (0.83-1.16)
[2018-12-26] MEDS: METOPROLOL TARTRATE 50 MG TAB PO SCH ×2 (08:47→21:15)
[2018-12-26] MEDS: SENNOSIDES/DOCUSATE SODIUM TAB PO SCH ×2 (08:47→21:14)
[2018-12-26] MEDS: THIAMINE HCL 100 MG TAB PO SCH (08:48)
[2018-12-26] MEDS: MAGNESIUM OXIDE 400 MG TAB PO SCH ×2 (08:48→21:14)
[2018-12-26] MEDS: LEVOTHYROXINE 100 MCG TAB PO SCH (08:48)
[2018-12-26] MEDS: CITALOPRAM 20 MG TAB PO SCH (08:48)
[2018-12-26] MEDS: MULTIVITAMINS 1 EACH TAB PO SCH (08:48)
--- NOTE | 2018-12-26 12:37 | HOSPPROG ---
Hospitalist Progress Note Assessment/Plan: 83 yo female with h/o alcohol abuse presented after fall. #Right-sided retroperitoneal bleed -s/p blood transfusion 12/23. H/H and BP remain stable with Coumadin started # Multiple fractures - T1 transverse process, 3rd, 4th, 5th, 6th ribs - trauma signed off - pain control adequate # LA thrombus - more likely from a-fib than from her MV - appreciate CV surgery input, no surgical intervention planned - restart Coumadin 12/25 # Bioprosthetic MV replacement - AC as above # Atrial fib - metoprolol 50mg BID, Coumadin #HTN - SBP low this am in the 's - hold lisinopril. # EtOH abuse - no withdrawal currently. Counseled on cessation # Wernicke's - s/p thiamine #Acute on chronic metabolic encephalopathy: improved # hypothyroid - adherence to meds questionable - cont increased dose levothryoxine - recheck TSH 4-6 weeks # UTI - s/p 3 days IV ceftriaxone #Diet: regular #DVT ppx: SCD Inpatient admission for serial labs, telemetry. High-risk for rebleed. Will DC to [facility] tomorrow if remains clinically stable Daughter at bedside and questions answered. Subjective: no flank pain, CP, dizziness Objective: Vital Signs Temp Pulse Resp BP Pulse Ox 36.8 C 101 H 18 126/89 H 91 L 12/26/18 07:57 12/26/18 11:54 12/26/18 11:54 12/26/18 11:54 12/26/18 11:54 Microbiology 12/19/18 15:00 Blood Culture - Final Blood 12/19/18 12:35 Blood Culture - Final Blood Laboratory Results 12/26/18 04:10 12/24/18 05:05 12/25/18 12/26/18 12/27/18 05:59 05:59 05:59 Intake Total 990 400 Output Total 1201 1450 200 Balance -211 -1050 -200 PT 17.0 SEC (12.0-15.0) H 12/26/18 04:10 INR 1.45 (0.83-1.16) H 12/26/18 04:10 - Time Spent With Patient Time Spent with Patient: greater than 35 minutes Time Spent with Patient: Greater than 35 minutes spent on this patients care, greater than 50% of time spent counseling, educating, and coordinating care regarding the above mentioned plan. - Physical Exam Constitutional: no apparent distress Eyes: PERRL Ears, Nose, Mouth, Throat: moist mucous membranes Cardiovascular: tachycardia Respiratory: no respiratory distress Gastrointestinal: normoactive bowel sounds Genitourinary: no bladder fullness Musculoskeletal: other (ecchymoses BL flank, no TTP) ICD10 Worksheet Patient Problems: Problems Problem Status Onset Altered mental status Acute Hypokalemia Acute Rib fracture Acute Tachycardia Acute
--- NOTE | 2018-12-26 14:13 | WOCRNPDOC ---
WOCRN Advanced Assessment Note - Skin Integrity Problem, Advanced Assess Right Knee Scab Dressing Type: Open to Air Kaleigh Wound Tissue: Erythema (kaleigh wound to 0.3 cm circumferential due to dryness of wound bed) Wound Bed Constitution: Stable Eschar (100%) Site Measurement - Head-to-Toe Length X Width X Depth (cm): 0.9x1.3xeschar Skin Integrity Problem Comment: Likely traumatic wound that has dried out. Will initiate moist wound healing and will follow. No sign of infection. Left Anterior Ankle Pressure Injury Dressing Type: Open to Air Kaleigh Wound Tissue: Erythema Wound Bed Color: Red, Yellow Wound Bed Constitution: Adhered Slough (100%) Wound Edges: Attached Site Measurement - Head-to-Toe Length X Width X Depth (cm): 0.3x0.6x0.1 Pressure Injury Stage: Stage 2 Pressure Injury Present on Admit: Yes Skin Integrity Problem Comment: This wound has evolved into a stage 2 wound. Cleaned with ns and guaze. Marquita WOCN in room for care. Left Lateral Distal Dorsal Foot Dressing Type: Allevyn Life Dressing Description: Clean/Dry, Intact Exudate Amount: Scant Exudate Color: Yellow, Brown Exudate Characteristic(s): Serosanguinous Integumentary Issue Intervention: Visualized Under Dressing Kaleigh Wound Tissue: Erythema Wound Bed Constitution: Adhered Slough (100%) Wound Edges: Attached Site Measurement - Head-to-Toe Length X Width X Depth (cm): 0.5x0.6x0.1 Skin Integrity Problem Comment: Visualized under Allevyn life dressing to see small wound. Cleaned with ns and gauze. Replaced Allevyn life. Marquita WOCN in room for care. Wound care will follow.
--- NOTE | 2018-12-26 14:15 | ASMTCMCOM ---
CM Note CM Note Notes: Patient stabilizing clinically and team hopeful for d/c tomorrow. I have authorization from [place] (#[id number]) for [facility] - this is good through 12/28. Case Management will follow. Date Signed: 12/26/2018 02:14 PM Electronically Signed By:Farhana Dutton RN
[2018-12-26] MEDS ORDERED: WARFARIN SODIUM 5 MG TAB PO SCH (16:00)
[2018-12-26] MEDS: ACETAMINOPHEN 325 MG TAB PO PRN ×2 (16:13→23:33)
[2018-12-27 05:48] LABS: INR 1.43 (0.83-1.16); PROTIME(PATIENT) 16.8 SEC (12.0-15.0)
[2018-12-27] MEDS: LEVOTHYROXINE 100 MCG TAB PO SCH (06:19)
[2018-12-27] MEDS: CITALOPRAM 20 MG TAB PO SCH (09:01)
[2018-12-27] MEDS: SENNOSIDES/DOCUSATE SODIUM TAB PO SCH (09:02)
[2018-12-27] MEDS: METOPROLOL TARTRATE 50 MG TAB PO SCH (09:02)
[2018-12-27] MEDS: THIAMINE HCL 100 MG TAB PO SCH (09:02)
[2018-12-27] MEDS: MULTIVITAMINS 1 EACH TAB PO SCH (09:02)
[2018-12-27] MEDS: MAGNESIUM OXIDE 400 MG TAB PO SCH (09:02)
--- NOTE | 2018-12-27 09:07 | HOSPPROG ---
Hospitalist Progress Note Assessment/Plan: DIAGNOSES: * Post hemorrhagic anemia, right-sided retroperitoneal bleed requiring transfusions of red blood cells; currenty stable * Left atrial thrombus likely related AFib * Multiple fractures including multiple ribs and T1 transverse process * Fall with injury * Atrial fib with bioprosthetic mitral valve, chronic anticoagulation and beta- katerine * Acute metabolic encephalopathy multifactorial, with chronic encephalopathy/ Wernicke's syndrome * Acute urinary tract infection * Gait instability, high fall risk PLANS: * transfer to SNF today Seen by me today on hospitals rounds as well as multidisciplinary rounds SUBJECTIVE: feels better little pain OBJECTIVE Vitals reviewed:all stable Exam: alert oriented skin warm dry color ok resps not labored lungs clear BSs heart regular abd soft nondistended nontender, bowel sounds present limbs warm, no edema iv site ok Objective: Vital Signs Temp Pulse Resp BP Pulse Ox 36.8 C 92 16 140/98 H 93 12/27/18 08:00 12/27/18 08:00 12/27/18 08:00 12/27/18 08:00 12/27/18 08:00 Laboratory Results 12/27/18 05:20 12/24/18 05:05 12/26/18 12/27/18 12/28/18 06:59 06:59 06:59 Intake Total 400 600 Output Total 1450 1575 Balance -1050 -975 PT 16.8 SEC (12.0-15.0) H 12/27/18 05:20 INR 1.43 (0.83-1.16) H 12/27/18 05:20 ICD10 Worksheet Patient Problems: Problems Problem Status Onset Altered mental status Acute Hypokalemia Acute Rib fracture Acute Tachycardia Acute
[2018-12-27] MEDS ORDERED: METOPROLOL TARTRATE 25 MG TAB PO ONE (09:31)
[2018-12-27] MEDS ORDERED: LISINOPRIL 5 MG TAB PO SCH (09:45)
--- NOTE | 2018-12-27 10:23 | PDIAF ---
- Diagnosis Diagnosis: fall w fx's, retrperitoneal bleed, Afib, mechanical mitral valve... Code Status: Full Code - Medication Management Discharge Medications: electronically signed and located in the Home Medication List. - Orders Services needed: Registered Nurse, Certified Concrete Wall Grinder Operator, Master Workplace Relations Adviser , Physical Therapy, Occupational Therapy Diet Recommendation: sodium restricted Diet Texture: Regular Texture Diet, Thin Liquids Weigh Patient: weekly Activity/Weight Bearing Restrictions: full wt bear, high fall risk; - Labs/Radiology PT/INR Date: 12/28/18 (daily INR for next 4 days and beyond that as needed for new change to coumadin) - Follow Up Care Current Providers and Referrals: Patient,NotPresent [Unknown] - As per Instructions
--- NOTE | 2018-12-27 10:25 | PDDCSUM ---
Discharge Summary Discharge Summary: DISCHARGE DIAGNOSES: * Post hemorrhagic anemia, right-sided retroperitoneal bleed requiring transfusions of red blood cells * Left atrial thrombus at mitral valve, felt likely related AFib (not felt to be a surgical candidate for this as valve functioning and she is at very high risk) * Multiple fractures including multiple ribs and T1 transverse process * Fall with injury * Atrial fib with bioprosthetic mitral valve, chronic anticoagulation and beta- katerine * Acute metabolic encephalopathy multifactorial, with chronic encephalopathy/ Wernicke's syndrome * Acute urinary tract infection * Gait instability, high fall risk CONSULTANTS: Dr. Ramakrishna claire PROCEDURES: Transesophageal echocardiogram CT scan of abdomen HOSPITAL COURSE SUMMARY: This patient had been living alone was confused and on her floor unable to get up not recalling how she got there. She called her family for help and she was brought to the ER. She is found to have acute encephalopathy, multiple rib fractures and a T1 transverse process fracture. There is also evidence of an acute urinary tract infection and she grew E coli from culture. She is admitted the hospital started on hydration and antibiotic with nutritional supplement. The patient was fairly encephalopathic and there is concern for possible Wernicke's syndrome. She was started on thiamine replacement. The patient is known to be with chronic atrial fibrillation and was on Pradaxa at home. While here the patient did develop some tachycardia and hypotension along with decrease in hemoglobin from [address] scan was done and was found to have retroperitoneal hemorrhage. She was also found on echocardiogram studies to have a left atrial appendage that was adjacent or attached to mitral valve leaflet. However the mitral valve was functioning well on JOSEPHINE. She is felt to be a very poor surgical candidate and whether functioning valve it was elected to briefly discontinue her anticoagulant due to her bleeding. She tolerated this well without any embolic events. Her blood counts have remained stable. At this point she is started on oral Coumadin without a bridge due to her bleeding. Current INR is at 1.5 In terms of her confusion she has recovered reasonably well but that appears to likely have some degree of dementia. She has cleared her urine infection well. She has significant weakness and gait instability that persist. The pain of her fractures improving fairly rapidly and she is requiring minimal medication. At this point she is stable for discharge from hospital but will require constant supervision and a lot of therapies shows she is going to be transferred to a detention facility for ongoing rehabilitation. PENDING TEST RESULTS: None MEDICATION CHANGES: Data get trend has been discontinued and replaced with Coumadin, she is still titrating up her INR; no bridge due to her bleeding episode Synthroid increased from 75-100 mcg Multiple vitamin and senna are added FOLLOW-UP PLAN: She is transfer this time detention facility for ongoing rehabilitation Greater than 35 minutes bedside and care coordination time today
--- NOTE | 2018-12-27 12:29 | ASDISCHSUM ---
Discharge Information Plan Status:SNF Medically Cleared to Leave: Discharge Date: D/C Disposition:Residential Facility [facility] D/C Disposition:Residential Facility Projected Discharge Date:12/27/2018 11:00 AM Transportation at D/C: Discharge Delay Reason: Follow-Up Date:12/27/2018 11:00 AM Discharge Slot: Final Diagnosis: Placement Information Referral Type:*Long-Term/SNF Referral ID:[id number] Provider Name: Address 1: Phone Number: Address 2: Fax Number: City: Selection Factors: State: Referral Type:*Long-Term/SNF Referral ID:[id number] [facility] [facility] Phone Number: Address 2: Fax Number: [facility]:[place] Selection Factors: State:[place] Patient Contact Information Contact Name:MISHAWNCOOK Relationship:Daughter Address: Work Phone: City: [facility] Phone: [facility] Code: Email: Financial Information Financial Class:Medicare Advantage Plans Primary Plan Desc:[employer] ADV IP Primary Plan Number:[id number] Secondary Plan Desc: Secondary Plan Number: Assessment Information LACE LACE Length of stay for Answers: 7-13 days current admission Acuity / Level of Answers: Yes Care: Did the patient have an inpatient admission? Comorbidities - select Answers: Other Notes: HTN; DVT all that apply # of Emergency department Answers: 1-2 visits in the last 6 months Social determinants Answers: History of substance abuse (ETOH, street drugs, prescription drugs, etc.) Mental health diagnosis (anxiety, depression, pers onality disorders, etc.) Score: 16 Date Signed: 12/27/2018 12:27 PM Electronically Signed By:CATALINA Cifuentes [facility] CM Progress Note CM Note CHRISTINA Note Notes: Pt is a 83 yo F who was found down. Pt has adult children in the area. Pt reportedly drinks 10-15 oz of ETOH daily. Pt was living independently prior to admission. At this time PT is recommending SNF. CM to discuss options with pt and family and submit referrals; CM to assess ETOH use and assess as indicated. CM to follow. Plan: SNF Date Signed: 12/19/2018 01:39 PM Electronically Signed By:CATALINA Cifuentes [facility] CHRISTINA Progress Note CHRISTINA Nur CM Note Notes: CHRISTINA met with pt and his family today to update on discharge process. Pt has been approved for SNF by [facility], family provided with list will review and make choice. CM initated SNF referrals to [facility] contracted facilities. Family is supportive. Plan: SNF, pending family choice. Date Signed: 12/21/2018 01:54 PM Electronically Signed By:CATALINA Cifuentes [facility] CHRISTINA Progress Note CHRISTINA Note CHRISTINA Note Notes: Met with pt's daughter who was adament that it is not safe for pt to be discharged home. CM provided support and education about our recommendation for SNF and that she would not be safe going home. She appreciated our support. She and her siblings are appropriately supportive of trying to get pt to SNF with plan for her to live with one of the siblings. She requested support from staff to continue to help discuss discharge to SNF as safe option. Family is looking at choices but are thinking [facility] might be most appropriate due to location. CM to follow. Plan: SNF pending family choice. Date Signed: 12/21/2018 04:58 PM Electronically Signed By:CATALINA Cifuentes [facility] CM Progress Note CM Note CM Note Notes: Spoke with patient and some of her family members. They have selected [facility] for discharge. Case Management will coordinate d/c, likely tomorrow 12/23. Date Signed: 12/22/2018 02:25 PM Electronically Signed By:Farhana Dutton RN [facility] CM Progress Note CM Note CM Note Notes: Patient not stable for d/c today. Per hospitalist, d/c in 1-2 days. We will need to send 48 hours of notes to [employer] tomorrow, 12/24, to renew insurance auth for SNF. [facility] notified. Case Management will follow. Date Signed: 12/23/2018 01:46 PM Electronically Signed By:Farhana Dutton RN [facility] CM Progress Note CM Note CM Note Notes: I've sent [facility] all requested clinical updates in order for them to renew patient's authorization for SNF (it yesterday). All [facility] care team members still recommending SNF. Case Management will continue to follow. Current CM Discharge plan: [facility] Date Signed: 12/24/2018 04:10 PM Electronically Signed By:Farhana Dutton RN [facility] CM Progress Note CM Note CM Note Notes: Updates sent to [employer] per their request, pt not medically stable for d/c. [facility] to be sent updates for re-auth since auth has . Date Signed: 12/25/2018 04:36 PM Electronically Signed By:DANNY Ontiveros [facility] CM Progress Note CM Note CM Note Notes: Patient stabilizing clinically and team hopeful for d/c tomorrow. I have authorization from [facility] (#[id number]) for [facility] - this is good through 12/28. Case Management will follow. Date Signed: 12/26/2018 02:14 PM Electronically Signed By:Farhana Dutton RN Case Management Discharge Plan Note Case Management Discharge Discharge Order Complete? Answers: Yes Patient to Obtain Answers: Other Notes: [facility] scheduled for Medications 2:30pm. Transportation Arranged Answers: Other Notes: [facility] Scheduled for 2:30pm Case Management Transport Answers: Yes Form Complete Faxed Final Orders Answers: Yes Agency/Facility Transfer Answers: Yes Report Printed & Faxed to Receiving Agency Family Notified Answers: Yes Discharge Comments Notes: CM spoke with pt and her daughterRianna to discuss discharge plans. Provided her with contact information for questions. Is agreeable with discharge plan to [facility]. Completed CAGE, CM provided resources. No other CM needs identified at this time. Family is supportive. Transportation scheduled for 2:30pm. RN given report number. Discharge orders sent. Date Signed: 12/27/2018 12:26 PM Electronically Signed By:CATALINA Cifuentes Intervention Information Intervention Type:*Incorrect Registration Date of Service:12/19/2018 08:04 AM Patient Type:Inpatient Staff Member:SANTOSH Toribio, [facility] Hours: Discipline: Severity: Comment: Intervention Type:*IM-Signed Date of Service:12/27/2018 11:17 AM Patient Type:Inpatient Staff Member:Ani Shah Hours: Discipline: Severity: Comment:
[2018-12-27 12:54] VITALS: BP 102/78
[2018-12-28] MEDS ORDERED: LISINOPRIL 5 MG TAB PO SCH (09:00)
[2018-12-28] MEDS ORDERED: LISINOPRIL 10 MG TAB PO SCH (09:00)
--- NOTE | 2018-12-29 09:49 | CPEKG ---
Test Reason : OPEN Blood Pressure : / mmHG Vent. Rate : 104 BPM Atrial Rate : 217 BPM P-R Int : 092 ms QRS Dur : 078 ms QT Int : 391 ms P-R-T Axes : 000 055 022 degrees QTc Int : 515 ms Atrial flutter with predominant 2:[address] depression, diffuse leads Prolonged QT interval ST depression V1-V3, suggest recording posterior leads similar to prior Confirmed by Miguel Fuentes ([id number]) on 12/29/2018 9:48:52 AM Referred By: Emma Winter Confirmed By:Miguel Fuentes
== END 2018-12-27 14:20 | DRG 302 ==
LOC: MERGE 22:29 → OBSVTOIN 22:29 → F2N 12-19 01:15
PROVIDERS: ADMIT Family Medicine; ATTEND Family Medicine
PROC: B246ZZ4 Ultrasonography of Right and Left Heart, Transesophageal (ICD-10-PCS; principal; 2018-12-19)
PROC: 05H633Z Insertion of Infusion Device into Left Subclavian Vein, Percutaneous Approach (ICD-10-PCS; 2018-12-23)
PROC: 30233N1 Transfusion of Nonautologous Red Blood Cells into Peripheral Vein, Percutaneous Approach (ICD-10-PCS; 2018-12-23)
DX: I51.3 Intracardiac thrombosis, not elsewhere classified (principal); G93.41 Metabolic encephalopathy; E51.2 Wernicke's encephalopathy; S22.42XA Multiple fractures of ribs, left side, initial encounter for closed fracture; S22.019A Unspecified fracture of first thoracic vertebra, initial encounter for closed fracture; W19.XXXA Unspecified fall, initial encounter; Y92.019 Unspecified place in single-family (private) house as the place of occurrence of the external cause; D62 Acute posthemorrhagic anemia; N39.0 Urinary tract infection, site not specified; B96.20 Unspecified Escherichia coli [E. coli] as the cause of diseases classified elsewhere; M62.82 Rhabdomyolysis; I48.2 Chronic atrial fibrillation; R58 Hemorrhage, not elsewhere classified; R26.89 Other abnormalities of gait and mobility; E03.9 Hypothyroidism, unspecified; I10 Essential (primary) hypertension; Z79.01 Long term (current) use of anticoagulants; Z95.2 Presence of prosthetic heart valve; Z87.891 Personal history of nicotine dependence; Z91.81 History of falling
CPT/HCPCS: 80305; 84481-90; 84484-ER; 85520-90; 92610-GN; 97116-GP; 97162-GP; 97166-GO; 97530-GO; 97530-GP; C9132; G0480; J0610; J0696; J1170; J1644; J1940; J2370; J2704; J3360; J3411; J3430; J3475; P9016; P9041; Q9967